=== PATIENT | male | born 1985 | race Caucasian/White ===

== ENCOUNTER 2017-09-24 13:25 | Observation (INO) | payer MEDICAID ==
[~2017-09-24] VITALS: Ht 177.8 cm; Wt 104.8 kg
[~2017-09-24 13:25] MED LIST: ACHD5005 PO; AGM875T PO; BENZ200C51 PO; CLC500CT; DOXY100C42 PO; FLUT9.9S NS; LORA1TAB59 PO; ONDA8TAB9 PO; TRM50T PO
--- OUTSIDE RECORDS SUMMARY | 2017-09-24 13:31 | XMS REPORT ---
Author Author LISA LEE Organization [facility] Address [address] [place] [address] Care Team Providers Care Care Coordination Manager Name Role Phone LISA LEE Unavailable PROBLEMS Type Condition ICD9-CM Code [id number] Code Onset Dates Condition Status SNOMED Code Problem Cerebral palsy, unspecified type G80.9 Active 535164900 ALLERGIES No Known Allergies ENCOUNTERS Encounter Location Date Diagnosis [facility] [address] [address] Nov, Cerebral palsy, unspecified type G80.9 [facility] [address] [address] Dec, Bug bite, initial encounter W57.XXXA and Abscess L02.91 [facility] [address] [address] Sep, Palpitation R00.2 ; Hyperlipidemia, unspecified hyperlipidemia type E78.5 and Chewing tobacco nicotine dependence without complication F17.220 [facility] [address] [place] [id number] [place] [phone] Sep, [facility] [id number] [place] [id number] Jun, [facility] [id number] [place] [phone] Jun, [facility] [address] [phone] Jun, [place] [address] [id number] [place] [phone] Jun, IMMUNIZATIONS No Known Immunizations SOCIAL HISTORY Never Assessed REASON FOR VISIT Annual physical (male)--ABoggsLPN PLAN OF CARE Activity Details Follow Up 1 Year Reason: VITAL SIGNS Height 71 in 2016-12-26 Weight 227.3 lbs 2016-12-26 Temperature 98.1 degrees Fahrenheit 2016-12-26 Heart Rate 88 bpm 2016-12-26 Respiratory Rate 18 2016-12-26 BMI 31.70 kg/m2 2016-12-26 Blood pressure systolic 130 mmHg 2016-12-26 Blood pressure diastolic 76 mmHg 2016-12-26 MEDICATIONS No Known Medications RESULTS No Results PROCEDURES No Known procedures INSTRUCTIONS MEDICATIONS ADMINISTERED No Known Medications MEDICAL (GENERAL) HISTORY Type Description Date Medical History cerebral palsy Surgical History appendectomy Surgical History hernia repair Hospitalization History Hospitalization for surgery only
--- OUTSIDE RECORDS SUMMARY | 2017-09-24 13:31 | XMS REPORT ---
Author Author ALDAIR MCDONALD Organization [facility] Address [address] [place] [address] Care Team Providers Care Sidehand Name Role Phone HARRY ALDAIR Unavailable PROBLEMS Type Condition ICD9-CM Code [id number] Code Onset Dates Condition Status SNOMED Code Problem Palpitation R00.2 Active 23352329 Problem Hyperlipidemia, unspecified hyperlipidemia type E78.5 Active 05623347 Assessment Bug bite, initial encounter W57.XXXA Dec, Active 108807141 Assessment Abscess L02.91 Dec, Active 148501082 Problem Chewing tobacco nicotine dependence without complication F17.220 Active 49232611 Problem Routine general medical examination at health care facility V70.0 Active 994179882 ALLERGIES Substance Reaction Event Type Date Status N.K.D.A. Unknown Non Drug Allergy Dec, Unknown SOCIAL HISTORY No smoking Hx information available PLAN OF CARE VITAL SIGNS Height 71 in 2016-01-22 Weight 218 lbs 2016-01-22 Heart Rate 80 bpm 2016-01-22 Respiratory Rate 18 2016-01-22 BMI 30.40 kg/m2 2016-01-22 Blood pressure systolic 130 mmHg 2016-01-22 Blood pressure diastolic 80 mmHg 2016-01-22 MEDICATIONS Medication Instructions Dosage Frequency Start Date End Date Duration Status Bactroban 2 % Externally Three times a day 1 application to affected area 8h Dec, Dec, 7 days Active Bactrim DS 800-160 MG Orally Twice a day 1 tablet 12h Dec, Jan, 10 day(s) Active RESULTS No Results PROCEDURES Procedure Date Ordered Related Diagnosis Body Site Office Visit, Est Pt., Level 3 Jan 22, 2016 IMMUNIZATIONS No Known Immunizations
--- NOTE | 2017-09-24 14:21 | ED EENT ---
History of Present Illness General Chief Complaint: Dental Problems/Pain Stated Complaint: L SIDE ABSCESS TOOTH Nursing Triage Note: c/o facial swelling and dental pain Source: patient Exam Limitations: no limitations History of Present Illness Date Seen by Provider: September 24, 2017 Time Seen by Provider: 14:20 Initial Comments To ER with reports of left maxillary toothache for a few days swelling since yesterday. Timing/Duration: abrupt Severity: moderate Location: facial, dental Associated Symptoms: denies symptoms Allergies and Home Medications Allergies Coded Allergies: No Known Drug Allergies (Unverified , 08/17/08) Home Medications Benzonatate 200 Mg Capsule, 200 MG PO TID Prescribed by: LISET DENNISON on 04/05/161854 Doxycycline Monohydrate 100 Mg Capsule, 100 MG PO BID Prescribed by: LISET DENNISON on 04/05/161854 Fluticasone Propionate 9.9 Ml Lynco.susp, 2 SPRAYS NS BID Prescribed by: LISET DENNISON on 04/05/161854 Loratadine/Pseudoephedrine 1 Each Tab.er.12h, 1 EACH PO BID Prescribed by: LISET DENNISON on 04/05/161854 Patient Home Medication List Home Medication List Reviewed: Yes Review of Systems Constitutional: see HPI Eyes: No Symptoms Reported Ears: No Symptoms Reported Nose: no symptoms reported Mouth: see HPI, pain Throat: no symptoms reported Respiratory: no symptoms reported Cardiovascular: no symptoms reported (What was) Musculoskeletal: no symptoms reported Skin: no symptoms reported Past Hxxfppj-Bwotfy-Sridoq Hx Patient Social History Alcohol Use: Denies Use Recreational Drug Use: No Recent Foreign Travel: No Contact w/Someone Who Travel: No Recent Infectious Disease Expo: No Recent Hopitalizations: No Physical Abuse: No Sexual Abuse: No Immunizations Up To Date Tetanus Booster (TDap): Unknown Past Medical History Surgeries: Yes (DIAPH.HERNIA REPAIR,FEEDING TUBE,ADHESIONS,APPY, lipoma excision) Abdominal, Appendectomy Respiratory: No (SPONTANEOUS PNEUMOTHORAX A BABY) Cardiac: No Neurological: Yes Cerebral Palsy Reproductive Disorders: No Sexually Transmitted Disease: No Gastrointestinal: Yes (DIAPHRAGMATIC HERNIA REPAIR INFANT) Musculoskeletal: No Endocrine: No Cancer: No Psychosocial: No Nursing Suicide Risk Score: 0 Integumentary: No Blood Disorders: No Family Medical History No Pertinent Family Hx Physical Exam Vital Signs Vital Signs - First Documented 09/24/17 14:02 Temp 98.1 Pulse 123 Resp 18 B/P (MAP) 133/64 (87) Pulse Ox 97 General Appearance: WD/WN, no apparent distress Eyes: bilateral eye normal inspection, bilateral eye PERRL, bilateral eye EOMI , bilateral eye other (The extraocular muscles are intact.) Ears: bilateral ear auricle normal, bilateral ear canal normal, bilateral ear TM normal Mouth/Throat: maxillary swelling, other (Left maxillary swelling) Neck: non-tender, full range of motion Respiratory: normal breath sounds, no respiratory distress, no accessory muscle use Gastrointestinal: normal bowel sounds, non tender Neurologic/Psychiatric: alert, normal mood/affect, oriented x 3 Skin: normal color, warm/dry Progress/Results/Core Measures Results/Orders Lab Results Laboratory Tests Test 09/24/17 14:15 Range/Units White Blood Count 12.2 H 4.3-11.0 10^3/uL Red Blood Count 5.28 4.35-5.85 10^6/uL Hemoglobin 15.5 13.3-17.7 G/DL Hematocrit 43 40-54 % Mean Corpuscular Volume 82 80-99 FL Mean Corpuscular Hemoglobin 29 25-34 PG Mean Corpuscular Hemoglobin Concent 36 32-36 G/DL Red Cell Distribution Width 14.1 10.0-14.5 % Platelet Count 315 130-400 10^3/uL Mean Platelet Volume 9.7 7.4-10.4 FL Neutrophils (%) (Auto) 77 H 42-75 % Lymphocytes (%) (Auto) 16 12-44 % Monocytes (%) (Auto) 6 0-12 % Eosinophils (%) (Auto) 1 0-10 % Basophils (%) (Auto) 0 0-10 % Neutrophils # (Auto) 9.5 H 1.8-7.8 X 10^3 Lymphocytes # (Auto) 2.0 1.0-4.0 X 10^3 Monocytes # (Auto) 0.7 0.0-1.0 X 10^3 Eosinophils # (Auto) 0.1 0.0-0.3 10^3/uL Basophils # (Auto) 0.0 0.0-0.1 10^3/uL Sodium Level 139 135-145 MMOL/L Potassium Level 3.4 L 3.6-5.0 MMOL/L Chloride Level 108 H 98-107 MMOL/L Carbon Dioxide Level 19 L 21-32 MMOL/L Anion Gap 12 5-14 MMOL/L Blood Urea Nitrogen 6 L 7-18 MG/DL Creatinine 1.02 0.60-1.30 MG/DL Estimat Glomerular Filtration Rate > 60 BUN/Creatinine Ratio 6 Glucose Level 130 H 70-105 MG/DL Calcium Level 9.4 8.5-10.1 MG/DL Total Bilirubin 0.7 0.1-1.0 MG/DL Aspartate Amino Transf (AST/SGOT) 14 5-34 U/L Alanine Aminotransferase (ALT/SGPT) 24 0-55 U/L Alkaline Phosphatase 93 40-136 U/L Total Protein 8.3 H 6.4-8.2 GM/DL Albumin 4.7 H 3.2-4.5 GM/DL My Orders Orders - SHEILA RASMUSSEN CHERRY GROWER Cbc With Automated Diff (09/24/17 14:10) Comprehensive Metabolic Panel (09/24/17 14:10) Ct Maxillofacial W (09/24/17 14:10) Ketorolac Injection (Toradol Injection) (09/24/17 15:15) Clindamycin 900 Mg/50 Ml Ivpb (Cleocin P (09/24/17 15:15) Lidocaine/Epi 2% 1:100,000 (Xylocaine/Ep (09/24/17 15:15) Iohexol Injection (Omnipaque 350 Mg/Ml 1 (09/24/17 15:15) Sodium Chloride Flush (Catheter Flush Sy (09/24/17 15:15) Pharmacy Communication (Pharmacy Communi (09/24/17 15:12) Medications Given in ED Current Medications Medications Dose Ordered Sig/Anastasia Route Start Time Stop Time Status Last Admin Dose Admin Clindamycin Phosphate/Dextrose 50 ml @ 100 mls/hr ONCE ONCE IV 09/24/17 15:15 09/24/17 15:44 DC 09/24/17 15:35 100 MLS/HR Iohexol 100 ml ONCE ONCE IV 09/24/17 15:15 09/24/17 15:16 DC 09/24/17 15:13 100 ML Ketorolac Tromethamine 15 mg ONCE ONCE IVP 09/24/17 15:15 09/24/17 15:16 DC 09/24/17 15:35 15 MG Sodium Chloride 10 ml NEEDED PRN IV 09/24/17 15:15 09/24/17 15:13 10 ML Vital Signs/I&O 09/24/17 14:02 Temp 98.1 Pulse 123 Resp 18 B/P (MAP) 133/64 (87) Pulse Ox 97 Blood Pressure Mean: 87 Diagnostic Imaging Diagonstic Imaging: CT Comments NAME: RISHI RICH [facility] REC#: [id number] PT STATUS: REG ER : 1985 PHYSICIAN: SHEILA RASMUSSEN CHERRY GROWER ADMIT DATE: 09/24/17/ER Draft Date of Exam:09/24/17 CT MAXILLOFACIAL W PROCEDURE: CT maxillofacial with contrast. TECHNIQUE: After intravenous administration of contrast, axial images were obtained through the face and reformatted into coronal and sagittal planes. INDICATION: Left facial pain. COMPARISON: None. FINDINGS: Moderate to advanced mucosal thickening in the left maxillary sinus. The paranasal sinuses are otherwise clear. No air-fluid levels. The ostiomeatal units and frontal recesses are patent. Midline nasal septum. No large flaco bullosa. There is a caries and periapical lucency about the first left maxillary premolar. The periapical lucency communicates with the left maxillary sinus. There is also suggestion of cortical breakthrough about the periapical lucency in the lateral cortex of the maxilla (series 5, image 36). There also appears to be moderate inflammatory changes about the left maxilla and the face with no discrete fluid collections. Left level Ib lymphadenopathy is likely reactive. No necrotic lymph nodes. Multiple additional caries in the maxillary and mandibular dentition. No other suspicious periapical lucencies. Normal alignment of the temporomandibular joints. The visualized mastoids and middle ears are clear. IMPRESSION: 1. There is periapical lucency about the left first maxillary premolar which communicates with the left maxillary sinus where there is moderate to advanced mucosal thickening. There is also suggestion of cortical breakthrough, laterally, about this lucency and inflammatory changes in the adjacent soft tissues of the face. No fluid collection suspicious for a soft tissue abscess are identified. 2. Multiple additional caries in the maxillary and mandibular dentition. No other findings suspicious for an acute infectious or inflammatory process. 3. Left level Ib cervical lymphadenopathy is likely reactive. No necrotic lymph nodes. Dictated on workstation # [id number] Dict: 09/24/17 1534 Trans: 09/24/17 1607 [facility] [id number] Interpreted by: PINA RAYGOZA MD Electronically signed by: Departure Communication (Admissions) Time/Spoke to Admitting Phy: 16:29 [id number] discussed the case with Dr. Palacios. The patient is still tachycardic at 1: 30, his blood pressure is fine at 132/79. White count 12.2. We will admit for a couple of doses of IV antibiotics given the marked left maxillary swelling. Impression Primary Impression: Dental abscess Disposition: ADMITTED INPATIENT Condition: Stable Admissions Decision to Admit Reason: Admit from ER (General) Decision to Admit/Date: September 24, 2017 Time/Decision to Admit Time: 16:17 Departure-Patient Inst. Referrals: [facility] [place]) Primary Care Physician SHEILA RASMUSSEN APRN September 24, 2017 14:21
[2017-09-24 14:35] LABS: BASOPHILS % (AUTO) 0 % (0-10); EOSINOPHILS # (AUTO) 0.1 10^3/uL (0.0-0.3); EOSINOPHILS % (AUTO) 1 % (0-10); HEMATOCRIT 43 % (40-54); HEMOGLOBIN 15.5 G/DL (13.3-17.7); LYMPHOCYTES % (AUTO) 16 % (12-44); MEAN CORPUSCULAR HEMOGLOBIN 29 PG (25-34); MEAN CORPUSCULAR HGB CONC 36 G/DL (32-36); MEAN CORPUSCULAR VOLUME 82 FL (80-99); MEAN PLATELET VOLUME 9.7 FL (7.4-10.4); MONOCYTES # (AUTO) 0.7 X 10^3 (0.0-1.0); MONOCYTES % (AUTO) 6 % (0-12); NEUTROPHILS # (AUTO) 9.5 X 10^3 (1.8-7.8); NEUTROPHILS % (AUTO) 77 % (42-75); PLATELET COUNT 315 10^3/uL (130-400); RED BLOOD COUNT 5.28 10^6/uL (4.35-5.85); RED CELL DISTRIBUTION WIDTH 14.1 % (10.0-14.5); WHITE BLOOD COUNT 12.2 10^3/uL (4.3-11.0)
[2017-09-24 14:51] LABS: ALANINE AMINOTRANSFERASE 24 U/L (0-55); ALBUMIN 4.7 GM/DL (3.2-4.5); ALKALINE PHOSPHATASE 93 U/L (40-136); BILIRUBIN,TOTAL 0.7 MG/DL (0.1-1.0); BUN/CREATININE RATIO 6; CALCIUM 9.4 MG/DL (8.5-10.1); CARBON DIOXIDE 19 MMOL/L (21-32); CHLORIDE 108 MMOL/L (98-107); CREATININE SERUM 1.02 MG/DL (0.60-1.30); GFR ESTIMATED > 60; GLUCOSE 130 MG/DL (70-105); POTASSIUM 3.4 MMOL/L (3.6-5.0); SODIUM 139 MMOL/L (135-145); TOTAL PROTEIN 8.3 GM/DL (6.4-8.2)
[2017-09-24] MEDS ORDERED: LIDOCAINE/EPI 2% 1:100,00 (XYLOCAINE) 20 ML VIAL INJ ONE (15:15)
[2017-09-24] MEDS ORDERED: IOHEXOL 350 MG/ML 100 ML (OMNIPAQUE 350) VIAL IV ONE (15:15)
[2017-09-24] MEDS ORDERED: CATHETER FLUSH 10 ML SYR IV PRN (15:15)
[2017-09-24] MEDS ORDERED: CLINDAMYCIN 900 MG/50 ML IVPB 50 ML IV ONE (15:15)
[2017-09-24] MEDS ORDERED: KETOROLAC 30 MG/ML VIAL IVP ONE (15:15)
--- NOTE | 2017-09-24 16:07 | Diagnostic Imaging Report ---
PROCEDURE: CT maxillofacial with contrast. TECHNIQUE: After intravenous administration of contrast, axial images were obtained through the face and reformatted into coronal and sagittal planes. INDICATION: Left facial pain. COMPARISON: None. FINDINGS: Moderate to advanced mucosal thickening in the left maxillary sinus. The paranasal sinuses are otherwise clear. No air-fluid levels. The ostiomeatal units and frontal recesses are patent. Midline nasal septum. No large flaco bullosa. There is a caries and periapical lucency about the first left maxillary premolar. The periapical lucency communicates with the left maxillary sinus. There is also suggestion of cortical breakthrough about the periapical lucency in the lateral cortex of the maxilla (series 5, image 36). There also appears to be moderate inflammatory changes about the left maxilla and the face with no discrete fluid collections. Left level Ib lymphadenopathy is likely reactive. No necrotic lymph nodes. Multiple additional caries in the maxillary and mandibular dentition. No other suspicious periapical lucencies. Normal alignment of the temporomandibular joints. The visualized mastoids and middle ears are clear. IMPRESSION: 1. There is periapical lucency about the left first maxillary premolar which communicates with the left maxillary sinus where there is moderate to advanced mucosal thickening. There is also suggestion of cortical breakthrough, laterally, about this lucency and inflammatory changes in the adjacent soft tissues of the face. No fluid collection suspicious for a soft tissue abscess are identified. 2. Multiple additional caries in the maxillary and mandibular dentition. No other findings suspicious for an acute infectious or inflammatory process. 3. Left level Ib cervical lymphadenopathy is likely reactive. No necrotic lymph nodes. Dictated by: Dictated on workstation # [id number]
[2017-09-24 17:15] VITALS: BP 137/77
[2017-09-24] MEDS ORDERED: NS IV 1000 ML 1,000 ML ONE (18:06)
[2017-09-24] MEDS ORDERED: HYDROcodone/APAP 5 MG/325 MG (LORTAB) TAB PO PRN (19:00)
[2017-09-24 19:05] VITALS: BP 127/86
[2017-09-24] MEDS: NS IV 1000 ML 1,000 ML IV SCH (20:46)
[2017-09-24 23:20] VITALS: BP 115/76
[2017-09-24] MEDS: CLINDAMYCIN 900 MG/50 ML IVPB 50 ML IV SCH (23:32)
[2017-09-25] MEDS: NS IV 1000 ML 1,000 ML IV SCH ×2 (03:02→11:40)
[2017-09-25 03:55] VITALS: BP 108/69
[2017-09-25 05:10] LABS: BASOPHILS % (AUTO) 0 % (0-10); EOSINOPHILS # (AUTO) 0.1 10^3/uL (0.0-0.3); EOSINOPHILS % (AUTO) 1 % (0-10); HEMATOCRIT 38 % (40-54); HEMOGLOBIN 13.1 G/DL (13.3-17.7); LYMPHOCYTES # (AUTO) 2.9 X 10^3 (1.0-4.0); LYMPHOCYTES % (AUTO) 33 % (12-44); MEAN CORPUSCULAR HGB CONC 34 G/DL (32-36); MEAN CORPUSCULAR VOLUME 84 FL (80-99); MEAN PLATELET VOLUME 9.4 FL (7.4-10.4); MONOCYTES # (AUTO) 0.9 X 10^3 (0.0-1.0); MONOCYTES % (AUTO) 11 % (0-12); NEUTROPHILS # (AUTO) 4.7 X 10^3 (1.8-7.8); NEUTROPHILS % (AUTO) 54 % (42-75); PLATELET COUNT 257 10^3/uL (130-400); RED CELL DISTRIBUTION WIDTH 14.2 % (10.0-14.5); WHITE BLOOD COUNT 8.6 10^3/uL (4.3-11.0)
[2017-09-25 05:14] LABS: MEAN CORPUSCULAR HEMOGLOBIN 28 PG (25-34)
[2017-09-25] MEDS: CLINDAMYCIN 900 MG/50 ML IVPB 50 ML IV SCH (06:33)
[2017-09-25 08:00] VITALS: BP 107/66
[2017-09-25] MEDS ORDERED: ACETAMINOPHEN 325 MG TABLET/CAPLET (TYLENOL) ONE (09:27)
[2017-09-25] MEDS ORDERED: ACETAMINOPHEN 325 MG TABLET/CAPLET (TYLENOL) PO PRN (09:30)
--- NOTE | 2017-09-25 11:59 | History & Physical-Hospitalist ---
History of Present Illness HPI/Chief Complaint CC: Left dental abscess HPI: This is a 31-year-old white male clinic patient of Dr. 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 He was found to have an abscess and considering the facial erythema and edema he was found to meet criteria for inpatient IV antibiotics. He is originally placed on clindamycin and due to the severity I have discontinued that and started on Zosyn. At this current time patient denies any current pain and I will Hep-Lock IV fluid so that he can ambulate today and arrange for dental clinic extraction tomorrow. Source: patient Date Seen 09/25/17 Time Seen by Provider: 11:00 Attending Physician Dana Palacios MD PCP Center/k,[facility] Referring Physician Date of Admission September 24, 2017 at 16:14 Home Medications & Allergies Home Medications Reviewed patient Home Medication Reconciliation performed by pharmacy medication reconciliations registered diet technician and/or nursing. Patients Allergies have been reviewed. Allergies Allergies Coded Allergies No Known Drug Allergies (Unverified08/17/08) Past Enqpxgl-Waidnc-Uuaoyu Hx Past Med/Social Hx: Reviewed Nursing Past Med/Soc Hx, Reviewed and Corrections made Patient Social History Marrital Status: single Employed/Student: unemployed, student, full-time Alcohol Use: Denies Use Recreational Drug Use: No Smoking Status: Never a Smoker Type Used: Smokeless Tobacco Physical Abuse Screen: No Sexual Abuse: No Recent Foreign Travel: No Contact w/other who traveled: No Recent Hopitalizations: No Recent Infectious Disease Expo: No Immunizations Up To Date Tetanus Booster (TDap): Unknown Seasonal Allergies Seasonal Allergies: No Past Medical History Surgeries: Abdominal, Appendectomy Currently Using CPAP: No Currently Using BIPAP: No Neurological: Cerebral Palsy Reproductive: No Sexually Transmitted Disease: No History of Blood Disorders: No Family History Patient reports no known family medical history. Hypertension Review of Systems Constitutional: see HPI, fever EENTM: mouth pain, mouth swelling, throat pain Respiratory: no symptoms reported Cardiovascular: no symptoms reported Gastrointestinal: no symptoms reported Musculoskeletal: no symptoms reported Skin: no symptoms reported Psychiatric/Neurological: No Symptoms Reported All Other Systems Reviewed Negative Unless Noted: Yes Physical Exam Physical Exam Vital Signs Vital Signs - First Documented 09/24/17 09/24/17 14:02 17:15 Temp 98.1 Pulse 123 Resp 18 B/P (MAP) 133/64 (87) Pulse Ox 97 O2 Delivery Room Air Capillary Refill : Less Than 3 Seconds General Appearance: No Apparent Distress, WD/WN Eyes: Bilateral Eye Normal Inspection, Bilateral Eye PERRL HEENT: PERRL/EOMI, Normal ENT Inspection, Pharynx Normal, Other (left facial edema and erythema noted) Neck: Full Range of Motion, Normal Inspection, Non Tender, Supple, Carotid Bruit Respiratory: Chest Non Tender, Lungs Clear, Normal Breath Sounds, No Accessory Muscle Use, No Respiratory Distress Cardiovascular: Regular Rate, Rhythm, No Edema, No Gallop, No JVD, No Murmur, Normal Peripheral Pulses Gastrointestinal: Normal Bowel Sounds, No Organomegaly, No Pulsatile Mass, Non Tender, Soft Back: Normal Inspection, No CVA Tenderness, No Vertebral Tenderness Extremity: Normal Capillary Refill, Normal Inspection, Normal Range of Motion, Non Tender, No Calf Tenderness, No Pedal Edema Neurologic/Psychiatric: Alert, Oriented x3, No Motor/Sensory Deficits, Normal Mood/Affect Skin: Normal Color, Warm/Dry Lymphatic: No Adenopathy Results Results/Procedures Labs Laboratory Tests 09/24/17 14:15 09/25/17 04:54 Patient resulted labs reviewed. Assessment/Plan Admission Diagnosis Left upper molar dental abscess with facial erythema and edema History of cerebral palsy Plan: DC clindamycin and start Zosyn Dental clinic follow-up tomorrow Admission Status: Observation Clinical Quality Measures DVT/VTE Risk/Contraindication: Risk Factor Score Per Nursin RFS Level Per Nursing on Admit: 2=Moderate PADMINI JACKSON DO September 25, 2017 11:59
[2017-09-25 12:00] VITALS: BP 118/58
[2017-09-25] MEDS ORDERED: PIPERACILLIN SODIUM/TAZOBACTAM 4.5 GM in D5W 100 ML IVPB 100 ML IV SCH (12:00)
[2017-09-25] MEDS ORDERED: PIPERACILLIN/TAZO 4.5 GM/D5W 100 ML IVPB IV NR ×2 (13:00)
[2017-09-25 16:28] VITALS: BP 128/72
[2017-09-25] MEDS: PIPERACILLIN SODIUM/TAZOBACTAM 4.5 GM in D5W 100 ML IVPB 100 ML IV SCH (18:14)
[2017-09-25 19:31] VITALS: BP 136/84
[2017-09-26] VITALS: BP 126/80
[2017-09-26] MEDS: PIPERACILLIN SODIUM/TAZOBACTAM 4.5 GM in D5W 100 ML IVPB 100 ML IV SCH ×2 (03:40→11:10)
[2017-09-26 03:44] VITALS: BP 130/79
[2017-09-26 06:26] LABS: BASOPHILS % (AUTO) 1 % (0-10); EOSINOPHILS # (AUTO) 0.1 10^3/uL (0.0-0.3); EOSINOPHILS % (AUTO) 2 % (0-10); HEMATOCRIT 39 % (40-54); HEMOGLOBIN 13.6 G/DL (13.3-17.7); LYMPHOCYTES # (AUTO) 2.5 X 10^3 (1.0-4.0); LYMPHOCYTES % (AUTO) 38 % (12-44); MEAN CORPUSCULAR HEMOGLOBIN 29 PG (25-34); MEAN CORPUSCULAR HGB CONC 35 G/DL (32-36); MEAN CORPUSCULAR VOLUME 84 FL (80-99); MEAN PLATELET VOLUME 9.6 FL (7.4-10.4); MONOCYTES # (AUTO) 0.7 X 10^3 (0.0-1.0); MONOCYTES % (AUTO) 11 % (0-12); NEUTROPHILS # (AUTO) 3.2 X 10^3 (1.8-7.8); NEUTROPHILS % (AUTO) 49 % (42-75); PLATELET COUNT 274 10^3/uL (130-400); RED BLOOD COUNT 4.69 10^6/uL (4.35-5.85); RED CELL DISTRIBUTION WIDTH 14.4 % (10.0-14.5); WHITE BLOOD COUNT 6.4 10^3/uL (4.3-11.0)
[2017-09-26 07:05] LABS: ALANINE AMINOTRANSFERASE 17 U/L (0-55); ALBUMIN 3.9 GM/DL (3.2-4.5); ALKALINE PHOSPHATASE 74 U/L (40-136); BILIRUBIN,TOTAL 0.3 MG/DL (0.1-1.0); BUN/CREATININE RATIO 9; CARBON DIOXIDE 22 MMOL/L (21-32); CHLORIDE 109 MMOL/L (98-107); CREATININE SERUM 0.93 MG/DL (0.60-1.30); GFR ESTIMATED > 60; GLUCOSE 105 MG/DL (70-105); POTASSIUM 3.9 MMOL/L (3.6-5.0); SODIUM 140 MMOL/L (135-145); TOTAL PROTEIN 6.9 GM/DL (6.4-8.2)
[2017-09-26 08:00] VITALS: BP 123/85
[2017-09-26] MEDS ORDERED: AMOX-358 PO (10:08)
[2017-09-26] MEDS ORDERED: ACHD5005 PO (10:08)
--- NOTE | 2017-09-26 10:10 | Discharge Summary-Hospitalist ---
Diagnosis/Chief Complaint Date of Admission September 24, 2017 at 16:14 Date of Discharge Discharge Date: September 26, 2017 Admission Diagnosis Left upper molar dental abscess with facial erythema and edema History of cerebral palsy Plan: DC clindamycin and start Zosyn Dental clinic follow-up tomorrow Discharge Diagnosis (1) Dental abscess Status: Acute (2) Cerebral palsy Status: Chronic Discharge Summary Discharge Physical Exam Allergies: Coded Allergies: No Known Drug Allergies (Unverified , 08/17/08) Vitals & I&Os Vital Signs Date Time Temp Pulse Resp B/P (MAP) Pulse Ox O2 Delivery O2 Flow Rate FiO2 09/26/17 08:00 97.0 90 18 123/85 (98) 97 Room Air General Appearance: Alert, Oriented X3, Cooperative HEENT: Atraumatic, PERRLA, Other (minimal edema left side of face no erythema) Respiratory: Clear to Auscultation Hospital Course Hospital course: Patient was admitted for severe left upper molar dental abscess placed on clindamycin which was changed to Zosyn for additional broad- spectrum due to the severity of the edema and erythema and CT scan imaging with its communication with soft tissue of the sinuses on the left side. He did well he responded to IV antibiotics and IV fluids and he was set up for dental extraction this afternoon at 1 p.m. a [facility]. Labs (last 24 hrs) Laboratory Tests 09/26/17 05:30: White Blood Count 6.4, Red Blood Count 4.69, Hemoglobin 13.6, Hematocrit 39L, Mean Corpuscular Volume 84, Mean Corpuscular Hemoglobin 29, Mean Corpuscular Hemoglobin Concent 35, Red Cell Distribution Width 14.4, Platelet Count 274, Mean Platelet Volume 9.6, Neutrophils (%) (Auto) 49, Lymphocytes (%) (Auto) 38, Monocytes (%) (Auto) 11, Eosinophils (%) (Auto) 2, Basophils (%) (Auto) 1, Neutrophils # (Auto) 3.2, Lymphocytes # (Auto) 2.5, Monocytes # (Auto) 0.7, Eosinophils # (Auto) 0.1, Basophils # (Auto) 0.0, Sodium Level 140, Potassium Level 3.9, Chloride Level 109H, Carbon Dioxide Level 22, Anion Gap 9, Blood Urea Nitrogen 8, Creatinine 0.93, Estimat Glomerular Filtration Rate > 60, BUN/ Creatinine Ratio 9, Glucose Level 105, Calcium Level 9.0, Total Bilirubin 0.3, Aspartate Amino Transf (AST/SGOT) 12, Alanine Aminotransferase (ALT/SGPT) 17, Alkaline Phosphatase 74, Total Protein 6.9, Albumin 3.9 Microbiology 09/24/17 Blood Culture - Preliminary, Resulted No growth Patient resulted labs reviewed. Pending Labs Laboratory Tests 09/26/17 05:30: White Blood Count 6.4, Red Blood Count 4.69, Hemoglobin 13.6, Hematocrit 39, Mean Corpuscular Volume 84, Mean Corpuscular Hemoglobin 29, Mean Corpuscular Hemoglobin Concent 35, Red Cell Distribution Width 14.4, Platelet Count 274, Mean Platelet Volume 9.6, Neutrophils (%) (Auto) 49, Lymphocytes (%) (Auto) 38, Monocytes (%) (Auto) 11, Eosinophils (%) (Auto) 2, Basophils (%) (Auto) 1, Neutrophils # (Auto) 3.2, Lymphocytes # (Auto) 2.5, Monocytes # (Auto) 0.7, Eosinophils # (Auto) 0.1, Basophils # (Auto) 0.0, Sodium Level 140, Potassium Level 3.9, Chloride Level 109, Carbon Dioxide Level 22, Anion Gap 9, Blood Urea Nitrogen 8, Creatinine 0.93, Estimat Glomerular Filtration Rate > 60, BUN/ Creatinine Ratio 9, Glucose Level 105, Calcium Level 9.0, Total Bilirubin 0.3, Aspartate Amino Transf (AST/SGOT) 12, Alanine Aminotransferase (ALT/SGPT) 17, Alkaline Phosphatase 74, Total Protein 6.9, Albumin 3.9 Discussion & Recommendations Discharge Planning: <30 minutes discharge planning Discharge Home Medications: Active Scripts Active Augmentin 875-125 Tablet (Amoxicillin/Potassium Clav) 1 Each Tablet 1 Each PO BID Hydrocodone/Acetaminophen 5/325mg Tablet (Acetaminophen/Hydrocodone Bitart) 1 Tab Tab 1 Tab PO Q4H PRN Instructions to patient/family Please see electronic discharge instructions given to patient. Clinical Quality Measures DVT/VTE Risk/Contraindication: Risk Factor Score Per Nursin RFS Level Per Nursing on Admit: 2=Moderate PADMINI JACKSON DO September 26, 2017 10:10
[2017-09-26 12:00] VITALS: BP 128/78
[2017-09-26 12:45] VITALS: BP 128/78
== END 2017-09-26 10:09 | disposition home or self-care (01) ==
LOC: EDUNIT# 13:25 → ER 13:27 → 4TH 16:14 → UNDOADMOB 16:14 → 4TH 17:15 → UNDODISOB 09-26 12:45
PROVIDERS: ADMIT Family Medicine; ATTEND Family Medicine
DX: K04.7 Periapical abscess without sinus (principal); G80.9 Cerebral palsy, unspecified
CPT/HCPCS: 36415; 70487; 80053; 83605; 85025; 87040; 96365; 96375; G0378

== ENCOUNTER 2018-03-21 13:10 | Emergency (ER) | payer MEDICAID ==
[~2018-03-21] VITALS: Ht 177.8 cm; Wt 108.9 kg
[~2018-03-21 13:10] MED LIST changes: +AMOX-358 PO
[2018-03-21] MEDS ORDERED: AMOX-358 PO (14:16)
--- NOTE | 2018-03-21 14:17 | ED EENT ---
History of Present Illness General Chief Complaint: Dental Problems/Pain Stated Complaint: TOOTH PAIN Nursing Triage Note: ARRIVED VIA AMB TO TRIAGE ROOM. COMPLAINS OF RIGHT SIDED TOOTH PAIN BUT CAN'T LOCALIZE THE PAIN. STATES IT STARTED YESTERDAY. Source: patient Exam Limitations: no limitations History of Present Illness Date Seen by Provider: Mar 21, 2018 Time Seen by Provider: 14:14 Initial Comments Patient is a 32-year-old male who presents to the emergency room with complaints of right sided upper molar tooth pain. He reports the pain started yesterday and has tried Orajel without relief. He tried to make an appointment with [facility] and they're booked until mid-March. He reports that he has had several dental issues in the past and has several caries. Timing/Duration: yesterday Location: mouth, dental Prearrival Treatment: over the counter meds Associated Symptoms: No facial pain/swelling; tooth pain Allergies and Home Medications Allergies Coded Allergies: No Known Drug Allergies (Unverified , 08/17/08) Home Medications Amoxicillin/Potassium Clav 1 Each Tablet, 1 EACH PO BID Prescribed by: ANISHA KNOX on 03/21/18 1416 Patient Home Medication List Home Medication List Reviewed: Yes Review of Systems Review of Systems Constitutional: no symptoms reported, see HPI Mouth: see HPI, pain All Other Systems Reviewed Negative Unless Noted: Yes Past Lebruzt-Gkxfqq-Jegkdk Hx Past Med/Social Hx: Reviewed Nursing Past Med/Soc Hx Patient Social History Alcohol Use: Rarely Uses Recreational Drug Use: No Smoking Status: Never a Smoker Type Used: Smokeless Tobacco Recent Foreign Travel: No Contact w/Someone Who Travel: No Recent Infectious Disease Expo: No Recent Hopitalizations: No Immunizations Up To Date Tetanus Booster (TDap): Unknown Seasonal Allergies Seasonal Allergies: No Past Medical History Surgeries: Yes (DIAPH.HERNIA REPAIR,FEEDING TUBE,ADHESIONS,APPY, lipoma excision) Abdominal, Appendectomy Respiratory: Yes (SPONTANEOUS PNEUMOTHORAX A BABY) Currently Using CPAP: No Currently Using BIPAP: No Cardiac: No Neurological: Yes Cerebral Palsy Reproductive Disorders: No Sexually Transmitted Disease: No Genitourinary: No Gastrointestinal: Yes (DIAPHRAGMATIC HERNIA REPAIR ) Musculoskeletal: No Endocrine: No HEENT: No Cancer: No Psychosocial: No Integumentary: No Blood Disorders: No Family Medical History Reviewed Nursing Family Hx Patient reports no known family medical history. Hypertension Physical Exam Vital Signs Vital Signs - First Documented 03/21/18 14:04 Temp 96.9 Pulse 87 Resp 16 B/P (MAP) 137/91 (106) Pulse Ox 95 O2 Delivery Room Air Height, Weight, BMI Height: 5'10.00" Weight: 240lbs. 0.0oz. 108.359892ew; 33.1 BMI Method:Stated General Appearance: WD/WN, no apparent distress Mouth/Throat: other (poor dental hygiene, numerous dental caries, abscess tooth to the right upper molar) Cardiovascular: normal peripheral pulses, regular rate, rhythm, no edema, no gallop, no JVD, no murmur Respiratory: chest non-tender, lungs clear, normal breath sounds, no respiratory distress, no accessory muscle use Neurologic/Psychiatric: alert, normal mood/affect, oriented x 3 Skin: normal color, warm/dry Progress/Results/Core Measures Results/Orders My Orders Orders - ANISHA KNOX Hydrocodone/Apap 5/325 Tablet (Lortab 5 (03/21/18 14:30) Medications Given in ED Current Medications Medications Dose Ordered Sig/Anastasia Route Start Time Stop Time Status Last Admin Dose Admin Acetaminophen/ Hydrocodone Bitart 1 tab ONCE ONCE PO 03/21/18 14:30 03/21/18 14:30 DC 03/21/18 14:23 1 TAB Vital Signs/I&O 03/21/18 03/21/18 14:04 14:25 Temp 96.9 96.9 Pulse 87 87 Resp 16 16 B/P (MAP) 137/91 (106) 137/91 (106) Pulse Ox 95 95 O2 Delivery Room Air Blood Pressure Mean: 106 Departure Impression Primary Impression: Dental caries Additional Impression: Abscessed tooth Disposition: 01 HOME, SELF-CARE Condition: Stable/Unchanged Departure-Patient Inst. Decision time for Depature: 14:16 Referrals: [facility] (PCP/Family) Primary Care Physician Patient Instructions: Tooth Abscess (DC) Add. Discharge Instructions: Take medications as directed. Tylenol and ibuprofen as needed for pain relief. Follow-up with [facility] dental clinic call today for an appointment time. Return back to the emergency room for any worsening symptoms or concerns as needed. All discharge instructions reviewed with patient and/or family. Voiced understanding. Scripts Amoxicillin/Potassium Clav (Augmentin 875-125 Tablet) 1 Each Tablet 1 EACH PO BID for 10 Days, #20 TAB Prov: ANISHA KNOX 03/21/18 Images Mouth/Nose 1 - Caries, Swelling, Tenderness ANISHA KNOX Mar 21, 2018 14:17
[2018-03-21] MEDS: HYDROcodone/APAP 5 MG/325 MG (LORTAB) TAB PO ONE (14:23)
[2018-03-21 14:25] VITALS: BP 137/91
--- OUTSIDE RECORDS SUMMARY | 2018-03-21 15:04 | XMS REPORT ---
Author Author SABA LAZARO Organization [facility] Address [address] [place] [address] Care Team Providers Care Administration Dean Name Role Phone SABA LAZARO Unavailable PROBLEMS Type Condition ICD9-CM Code PIG87-SW Code Onset Dates Condition Status SNOMED Code Problem Depressive disorder, not elsewhere classified F32.9 Active 01573785 Problem Cerebral palsy, unspecified type G80.9 Active [id number] ALLERGIES No Information ENCOUNTERS Encounter Location Date Diagnosis [facility] [address] [address] Mar, [facility] [address] [address] Mar, [facility] [address] [address] Jan, Depressive disorder, not elsewhere classified F32.9 [facility] [address] [address] Jan, [facility] [address] [address] Dec, [facility] [address] [address] Nov, Cerebral palsy, unspecified type G80.9 [facility] [address] [place] [address] [id number] Sep, Dental caries K02.9 [facility] [address] [place] [address] [phone] Sep, Dental caries K02.9 [facility] [id number] [place] [address] [phone] August, Dental examination Z01.20 [facility] [id number] [place] [address] Nov, Cerebral palsy, unspecified type G80.9 [facility] [id number] [place] [address] Dec, Bug bite, initial encounter W57.XXXA and Abscess L02.91 [place] [address] [address] Sep, Palpitation R00.2 ; Hyperlipidemia, unspecified hyperlipidemia type E78.5 and Chewing tobacco nicotine dependence without complication F17.220 [place] [address] [address] Sep, [place] [address] [address] Jun, [facility] [address] [address] Jun, [facility] [id number] [place] [address] Jun, [place] [id number] [place] [address] Jun, IMMUNIZATIONS No Known Immunizations SOCIAL HISTORY Never Assessed REASON FOR VISIT Reminder PLAN OF CARE VITAL SIGNS MEDICATIONS Unknown Medications RESULTS No Results PROCEDURES No Known procedures INSTRUCTIONS MEDICATIONS ADMINISTERED No Known Medications MEDICAL (GENERAL) HISTORY Type Description Date Medical History cerebral palsy Surgical History appendectomy Surgical History hernia repair Hospitalization History Hospitalization for surgery only
--- OUTSIDE RECORDS SUMMARY | 2018-03-21 15:04 | XMS REPORT ---
Author Author LISA LEE [facility] Address [address] [place] [address] Care Team Providers Care Resource Teacher Name Role Phone LISA LEE Unavailable PROBLEMS Type Condition ICD9-CM Code CHT58-YO Code Onset Dates Condition Status SNOMED Code Problem Depressive disorder, not elsewhere classified F32.9 Active 34044524 Problem Cerebral palsy, unspecified type G80.9 Active 449422098 ALLERGIES No Information ENCOUNTERS Encounter Location Date Diagnosis [facility] [address] [address] Mar, [facility] [address] [address] Mar, [facility] [address] [address] Jan, Depressive disorder, not elsewhere classified F32.9 [facility] [address] [address] Jan, [facility] [id number] [place] [address] Dec, [facility] [address] [address] Nov, Cerebral palsy, unspecified type G80.9 [facility] [id number] [place] [address] [id number] Sep, Dental caries K02.9 [facility] [id number] [place] [address] [id number] Sep, Dental caries K02.9 [facility] [id number] [place] [address] [id number] August, Dental examination Z01.20 [facility] [id number] [place] [address] Nov, Cerebral palsy, unspecified type G80.9 [facility] [address] [address] Dec, Bug bite, initial encounter W57.XXXA and Abscess L02.91 [place] [address] [address] Sep, Palpitation R00.2 ; Hyperlipidemia, unspecified hyperlipidemia type E78.5 and Chewing tobacco nicotine dependence without complication F17.220 [place] [address] [address] Sep, [place] [address] [address] Jun, [facility] [address] [address] Jun, [facility] [address] [address] Jun, [place] [address] [address] Jun, IMMUNIZATIONS No Known Immunizations SOCIAL HISTORY Never Assessed REASON FOR VISIT referral PLAN OF CARE VITAL SIGNS MEDICATIONS Unknown Medications RESULTS No Results PROCEDURES No Known procedures INSTRUCTIONS MEDICATIONS ADMINISTERED No Known Medications MEDICAL (GENERAL) HISTORY Type Description Date Medical History cerebral palsy Surgical History appendectomy Surgical History hernia repair Hospitalization History Hospitalization for surgery only
--- OUTSIDE RECORDS SUMMARY | 2018-03-21 15:04 | XMS REPORT ---
Author Author DIANNE LAZARO Organization [facility] Address [address] [place] [address] Care Team Providers Care Vice President Of Recruiting Name Role Phone DIANNE LAZARO Unavailable PROBLEMS Type Condition ICD9-CM Code DMT37-EO Code Onset Dates Condition Status SNOMED Code Problem Depressive disorder, not elsewhere classified F32.9 Active 49126051 Problem Cerebral palsy, unspecified type G80.9 Active 958504121 ALLERGIES No Information ENCOUNTERS Encounter Location Date Diagnosis [facility] [address] [address] Mar, [facility] [address] [address] Mar, [facility] [address] [address] Jan, Depressive disorder, not elsewhere classified F32.9 [facility] [address] [address] Jan, [facility] [address] [address] Dec, [facility] [address] [address] Nov, Cerebral palsy, unspecified type G80.9 [facility] [address] [place] [phone] Sep, Dental caries K02.9 [facility] [address] [place] [address] [phone] Sep, Dental caries K02.9 [facility] [id number] [place] [address] [phone] August, Dental examination Z01.20 [facility] [address] [place] [address] Nov, Cerebral palsy, unspecified type G80.9 [facility] [address] [place] [id number] [place] [address] Dec, Bug bite, initial encounter W57.XXXA and Abscess L02.91 [facility] [address] [address] Sep, Palpitation R00.2 ; Hyperlipidemia, unspecified hyperlipidemia type E78.5 and Chewing tobacco nicotine dependence without complication F17.220 [place] [address] [address] Sep, [facility] [address] [place] [address] [id number] [place] [address] Jun, [facility] [address] [place] [address] [id number] [place] [address] Jun, [facility] [address] [place] [address] [id number] [place] [address] Jun, [place] [address] [address] [id number] [place] [address] Jun, IMMUNIZATIONS No Known Immunizations SOCIAL HISTORY Never Assessed REASON FOR VISIT intake PLAN OF CARE Activity Details Follow Up Next Available Reason: Follow-up VITAL SIGNS MEDICATIONS Unknown Medications RESULTS No Results PROCEDURES Procedure Date Ordered Result Body Site Psych diagnostic evaluation, established patient Jan 30, 2018 INSTRUCTIONS MEDICATIONS ADMINISTERED No Known Medications MEDICAL (GENERAL) HISTORY Type Description Date Medical History cerebral palsy Surgical History appendectomy Surgical History hernia repair Hospitalization History Hospitalization for surgery only
--- OUTSIDE RECORDS SUMMARY | 2018-03-21 15:04 | XMS REPORT ---
Author Author DIANNE LAZARO Organization [facility] Address [address] [place] [address] Care Team Providers Care Sas Bi Developer Name Role Phone DIANNE LAZARO Unavailable PROBLEMS Type Condition ICD9-CM Code PCX90-YD Code Onset Dates Condition Status SNOMED Code Problem Depressive disorder, not elsewhere classified F32.9 Active 04904692 Problem Cerebral palsy, unspecified type G80.9 Active 840316771 ALLERGIES No Information ENCOUNTERS Encounter Location Date Diagnosis [facility] [address] [address] Mar, [facility] [address] [address] Mar, Depressive disorder, not elsewhere classified F32.9 [facility] [address] [address] Jan, Depressive disorder, not elsewhere classified F32.9 [facility] [address] [address] Jan, [facility] [address] [address] Dec, [facility] [address] [address] Nov, Cerebral palsy, unspecified type G80.9 [facility] [address] [id number] Sep, Dental caries K02.9 [facility] [id number] [place] [address] [phone] Sep, Dental caries K02.9 [facility] [address] [id number] August, Dental examination Z01.20 [facility] [address] [place] [address] Nov, Cerebral palsy, unspecified type G80.9 [facility] [id number] [place] [address] Dec, Bug bite, initial encounter W57.XXXA and Abscess L02.91 [facility] [address] [address] Sep, Palpitation R00.2 ; Hyperlipidemia, unspecified hyperlipidemia type E78.5 and Chewing tobacco nicotine dependence without complication F17.220 [facility] [address] [address] Sep, [facility] [address] [address] Jun, [facility] [id number] [place] [address] Jun, [facility] [id number] [place] [address] Jun, [place] [address] [place] [address] [id number] [place] [address] Jun, IMMUNIZATIONS No Known Immunizations SOCIAL HISTORY Never Assessed REASON FOR VISIT Follow-up Depressed Mood PLAN OF CARE Activity Details Follow Up 2 Weeks Reason: Follow-up VITAL SIGNS MEDICATIONS Unknown Medications RESULTS No Results PROCEDURES Procedure Date Ordered Result Body Site Psychotherapy, patient &/family, 30 minutes, established patient Mar 12, 2018 INSTRUCTIONS MEDICATIONS ADMINISTERED No Known Medications MEDICAL (GENERAL) HISTORY Type Description Date Medical History cerebral palsy Surgical History appendectomy Surgical History hernia repair Hospitalization History Hospitalization for surgery only
--- OUTSIDE RECORDS SUMMARY | 2018-03-21 15:05 | XMS REPORT ---
Author Author DARSHAN TAMEZ [facility] Address Unknown Care Team Providers Care Railroad Emergency Services Manager Name Role Phone DARSHAN TAMEZ Unavailable PROBLEMS Type Condition ICD9-CM Code USX27-GT Code Onset Dates Condition Status SNOMED Code Problem Cerebral palsy, unspecified type G80.9 Active 175789760 ALLERGIES No Known Allergies ENCOUNTERS Encounter Location Date Diagnosis [place] [address] [address] Jan, [facility] [address] [address] Nov, Cerebral palsy, unspecified type G80.9 [facility] [address] [id number] Sep, Dental caries K02.9 [facility] [address] [id number] Sep, Dental caries K02.9 [facility] [address] [id number] August, Dental examination Z01.20 [facility] [address] [address] Nov, Cerebral palsy, unspecified type G80.9 [facility] [id number] [place] [address] Dec, Bug bite, initial encounter W57.XXXA and Abscess L02.91 [place] [address] [address] Sep, Palpitation R00.2 ; Hyperlipidemia, unspecified hyperlipidemia type E78.5 and Chewing tobacco nicotine dependence without complication F17.220 [place] [address] [place] [address] Sep, [facility] [address] [facility] [id number] [address] Jun, [facility] [address] [facility] [id number] [address] Jun, [facility] [address] [facility] [id number] [address] Jun, [facility] [address] [facility] [id number] [address] Jun, IMMUNIZATIONS No Known Immunizations SOCIAL HISTORY Never Assessed REASON FOR VISIT 2 wk te PLAN OF CARE Activity Details Follow Up prn Reason:arielle/hygiene sjf VITAL SIGNS Height 71 in 2017-10-26 Blood pressure systolic 128 mmHg 2017-10-26 Blood pressure diastolic 90 mmHg 2017-10-26 MEDICATIONS Medication Instructions Dosage Frequency Start Date End Date Duration Status Clindamycin HCl 150 MG Orally every 6 hrs 2 capsules 6h 7 days Not- Taking RESULTS No Results PROCEDURES Procedure Date Ordered Result Body Site EXTRAC ERUPTED TOOTH/EXPOSED ROOT October 26, 2017 INSTRUCTIONS MEDICATIONS ADMINISTERED No Known Medications MEDICAL (GENERAL) HISTORY Type Description Date Medical History cerebral palsy Surgical History appendectomy Surgical History hernia repair Hospitalization History Hospitalization for surgery only
--- OUTSIDE RECORDS SUMMARY | 2018-03-21 15:05 | XMS REPORT ---
Author Author DARSHAN TAMEZ [facility] Address Unknown Care Team Providers Care Body Shop Supervisor Name Role Phone DARSHAN TAMEZ Unavailable PROBLEMS Type Condition ICD9-CM Code EGF98-GN Code Onset Dates Condition Status SNOMED Code Problem Cerebral palsy, unspecified type G80.9 Active 872696517 ALLERGIES No Known Allergies ENCOUNTERS Encounter Location Date Diagnosis [facility] [address] [address] Nov, Cerebral palsy, unspecified type G80.9 [facility] [address] [id number] Sep, Dental caries K02.9 [facility] [address] [id number] Sep, Dental caries K02.9 [facility] [address] [place] [id number] August, Dental examination Z01.20 [facility] [address] [address] Nov, Cerebral palsy, unspecified type G80.9 [facility] [address] [address] Dec, Bug bite, initial encounter W57.XXXA and Abscess L02.91 [facility] [address] [address] Sep, Palpitation R00.2 ; Hyperlipidemia, unspecified hyperlipidemia type E78.5 and Chewing tobacco nicotine dependence without complication F17.220 [facility] [address] [address] Sep, [facility] [address] [place] [address] Jun, [facility] [address] [facility] [id number] [place] [address] Jun, [facility] [address] [facility] [id number] [address] Jun, [facility] [address] [facility] [id number] [place] [address] Jun, IMMUNIZATIONS No Known Immunizations SOCIAL HISTORY Never Assessed REASON FOR VISIT te PLAN OF CARE Activity Details Follow Up 2 Weeks Reason:Ext # 12 VITAL SIGNS Height 71 in 2017-10-04 Blood pressure systolic 123 mmHg 2017-10-04 Blood pressure diastolic 80 mmHg 2017-10-04 MEDICATIONS Medication Instructions Dosage Frequency Start Date End Date Duration Status Clindamycin HCl 150 MG Orally every 6 hrs 2 capsules 6h 7 days Active RESULTS No Results PROCEDURES Procedure Date Ordered Result Body Site Dental no charge October 04, 2017 INSTRUCTIONS MEDICATIONS ADMINISTERED No Known Medications MEDICAL (GENERAL) HISTORY Type Description Date Medical History cerebral palsy Surgical History appendectomy Surgical History hernia repair Hospitalization History Hospitalization for surgery only
--- OUTSIDE RECORDS SUMMARY | 2018-03-21 15:05 | XMS REPORT ---
Author Author DARSHAN TAMEZ [facility] Address Unknown Care Team Providers Care Nc Machinist Name Role Phone DARSHAN TAMEZ Unavailable PROBLEMS Type Condition ICD9-CM Code LJD71-MP Code Onset Dates Condition Status SNOMED Code Problem Cerebral palsy, unspecified type G80.9 Active [id number] ALLERGIES No Known Allergies ENCOUNTERS Encounter Location Date Diagnosis [facility] [address] [address] Nov, Cerebral palsy, unspecified type G80.9 [facility] [address] [id number] Sep, Dental caries K02.9 [facility] [address] [id number] Sep, Dental caries K02.9 [facility] [address] [place] [id number] August, Dental examination Z01.20 [facility] [address] [address] Nov, Cerebral palsy, unspecified type G80.9 [facility] [address] [address] Dec, Bug bite, initial encounter W57.XXXA and Abscess L02.91 [facility] [address] [address] Sep, Palpitation R00.2 ; Hyperlipidemia, unspecified hyperlipidemia type E78.5 and Chewing tobacco nicotine dependence without complication F17.220 [facility] [address] [address] Sep, [facility] [address] [place] [address] Jun, [facility] [address] [facility] [id number] [place] [address] Jun, [facility] [address] [facility] [id number] [address] Jun, [facility] [address] [facility] [id number] [place] [address] Jun, IMMUNIZATIONS No Known Immunizations SOCIAL HISTORY Never Assessed REASON FOR VISIT fuentes PLAN OF CARE Activity Details Follow Up 1 Week Reason:#12-te VITAL SIGNS Height 71 in 2017-09-26 Blood pressure systolic 135 mmHg 2017-09-26 Blood pressure diastolic 99 mmHg 2017-09-26 MEDICATIONS No Known Medications RESULTS No Results PROCEDURES Procedure Date Ordered Result Body Site LTD ORAL EVALUATION - PROBLEM FOCUS September 26, 2017 INTRAORL-PERIAPICAL 1 FILM 50007 September 26, 2017 BITEWING - SINGLE FILM September 26, 2017 INSTRUCTIONS MEDICATIONS ADMINISTERED No Known Medications MEDICAL (GENERAL) HISTORY Type Description Date Medical History cerebral palsy Surgical History appendectomy Surgical History hernia repair Hospitalization History Hospitalization for surgery only
--- OUTSIDE RECORDS SUMMARY | 2018-03-21 15:05 | XMS REPORT ---
Author Author LISA LEE Organization [facility] Address [address] [place] [address] Care Team Providers Care Commercial Designer Name Role Phone LISA LEE Unavailable PROBLEMS Type Condition ICD9-CM Code IPF46-KG Code Onset Dates Condition Status SNOMED Code Problem Cerebral palsy, unspecified type G80.9 Active [id number] ALLERGIES No Known Allergies ENCOUNTERS Encounter Location Date Diagnosis [place] [id number] Jan, [place] [id number] [address] Dec, [facility] [address] [place] [address] Nov, Cerebral palsy, unspecified type G80.9 [facility] [address] [id number] Sep, Dental caries K02.9 [facility] [address] [id number] Sep, Dental caries K02.9 [facility] [address] [id number] August, Dental examination Z01.20 [facility] [address] [address] Nov, Cerebral palsy, unspecified type G80.9 [facility] [address] [address] Dec, Bug bite, initial encounter W57.XXXA and Abscess L02.91 [place] [address] [address] Sep, Palpitation R00.2 ; Hyperlipidemia, unspecified hyperlipidemia type E78.5 and Chewing tobacco nicotine dependence without complication F17.220 [facility] [address] [address] Sep, [facility] [address] [address] Jun, [facility] [address], [place] [address] Jun, [facility] [address], [place] [address] Jun, [facility] [address], [place] [address] Jun, IMMUNIZATIONS No Known Immunizations SOCIAL HISTORY Never Assessed REASON FOR VISIT cerebral palsy follow up and needs TR159 form filled out from [employer]. Katey RN PLAN OF CARE Activity Details Follow Up prn Reason: VITAL SIGNS Height 71 in 2017-12-11 Weight 239.0 lbs 2017-12-11 Temperature 97.4 degrees Fahrenheit 2017-12-11 Heart Rate 96 bpm 2017-12-11 Respiratory Rate 20 2017-12-11 BMI 33.33 kg/m2 2017-12-11 Blood pressure systolic 106 mmHg 2017-12-11 Blood pressure diastolic 72 mmHg 2017-12-11 MEDICATIONS Unknown Medications RESULTS No Results PROCEDURES No Known procedures INSTRUCTIONS MEDICATIONS ADMINISTERED No Known Medications MEDICAL (GENERAL) HISTORY Type Description Date Medical History cerebral palsy Surgical History appendectomy Surgical History hernia repair Hospitalization History Hospitalization for surgery only
--- OUTSIDE RECORDS SUMMARY | 2018-03-21 15:05 | XMS REPORT | Continuity of Care Document ---
Author Author [facility] Organization [facility] Address Unknown Phone Unavailable Allergies Active Description Code Type Severity Reaction Onset Reported/Identified Relationship to Patient Clinical Status Yes No Known Drug Allergies [id number] Drug Allergy Mild N/A 08/17/2008 Medications There is no data. 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 08/26/2012 VINCE CHAO Ot 276.51 DEHYDRATION 08/26/2012 VINCE CHAO Ot 789.09 ABDOMINAL PAIN, OTHER SPECIFIED SITE 04/05/2016 Ot 214.1 LIPOMA SKIN NEC 04/05/2016 Ot V72.84 EXAM PRE- OPERATIVE NOS 04/05/2016 Ot V74.8 SCREEN- BACTERIAL DIS NEC 04/05/2016 JESI DO LISET K Ot G80.9 CEREBRAL PALSY, UNSPECIFIED 04/05/2016 JESI DO, LISET K Ot J06.9 ACUTE UPPER RESPIRATORY INFECTION, UNSPE 04/05/2016 JESI DO, LISET K Ot J40 BRONCHITIS, NOT SPECIFIED ACUTE OR CH 04/05/2016 JESI DO LISET K Ot R05 COUGH 04/06/2016 JESI DO LISET K Ot G80.9 CEREBRAL PALSY, UNSPECIFIED 04/06/2016 JESI DO LISET K Ot J06.9 ACUTE UPPER RESPIRATORY INFECTION, UNSPE 04/06/2016 JESI DO, LISET K Ot J40 BRONCHITIS, NOT SPECIFIED ACUTE OR CH 04/06/2016 JESI DO LISET K Ot R05 COUGH 09/26/2017 NIKKO STEVENS MD Ot G80.9 CEREBRAL PALSY, UNSPECIFIED 09/26/2017 NIKKO STEVENS MD Ot K04.7 PERIAPICAL ABSCESS WITHOUT SINUS 09/26/2017 NIKKO STEVENS MD Ot G80.9 CEREBRAL PALSY, UNSPECIFIED 09/26/2017 NIKKO STEVENS MD Ot K04.7 PERIAPICAL ABSCESS WITHOUT SINUS Procedures There is no data. Results Test Result Range Complete blood count (CBC) with automated white blood cell (WBC) differential - 09/24/17 14:15 Blood leukocytes automated count (number/volume) 12.2 10*3/uL 4.3-11.0 Blood erythrocytes automated count (number/volume) 5.28 10*6/uL 4.35-5.85 Venous blood hemoglobin measurement (mass/volume) 15.5 g/dL 13.3-17.7 Blood hematocrit (volume fraction) 43 % 40-54 Automated erythrocyte mean corpuscular volume 82 [foz_us] 80-99 Automated erythrocyte mean corpuscular hemoglobin (mass per erythrocyte) 29 pg 25-34 Automated erythrocyte mean corpuscular hemoglobin concentration measurement ( mass/volume) 36 g/dL 32-36 Automated erythrocyte distribution width ratio 14.1 % 10.0-14.5 Automated blood platelet count (count/volume) 315 10*3/uL 130-400 Automated blood platelet mean volume measurement 9.7 [foz_us] 7.4-10.4 Automated blood neutrophils/100 leukocytes 77 % 42-75 Automated blood lymphocytes/100 leukocytes 16 % 12-44 Blood monocytes/100 leukocytes 6 % 0-12 Automated blood eosinophils/100 leukocytes 1 % 0-10 Automated blood basophils/100 leukocytes 0 % 0-10 Blood neutrophils automated count (number/volume) 9.5 10*3 1.8-7.8 Blood lymphocytes automated count (number/volume) 2.0 10*3 1.0-4.0 Blood monocytes automated count (number/volume) 0.7 10*3 0.0-1.0 Automated eosinophil count 0.1 10*3/uL 0.0-0.3 Automated blood basophil count (count/volume) 0.0 10*3/uL 0.0-0.1 Comprehensive metabolic panel - 09/24/17 14:15 Serum or plasma sodium measurement (moles/volume) 139 mmol/L 135-145 Serum or plasma potassium measurement (moles/volume) 3.4 mmol/L 3.6-5.0 Serum or plasma chloride measurement (moles/volume) 108 mmol/L 98-107 Carbon dioxide 19 mmol/L 21-32 Serum or plasma anion gap determination (moles/volume) 12 mmol/L 5-14 Serum or plasma urea nitrogen measurement (mass/volume) 6 mg/dL 7-18 Serum or plasma creatinine measurement (mass/volume) 1.02 mg/dL 0.60-1.30 Serum or plasma urea nitrogen/creatinine mass ratio 6 NRG Serum or plasma creatinine measurement with calculation of estimated glomerular filtration rate > NRG Serum or plasma glucose measurement (mass/volume) 130 mg/dL 70-105 Serum or plasma calcium measurement (mass/volume) 9.4 mg/dL 8.5-10.1 Serum or plasma total bilirubin measurement (mass/volume) 0.7 mg/dL 0.1-1.0 Serum or plasma alkaline phosphatase measurement (enzymatic activity/volume) 93 U/L 40-136 Serum or plasma aspartate aminotransferase measurement (enzymatic activity/ volume) 14 U/L 5-34 Serum or plasma alanine aminotransferase measurement (enzymatic activity/volume ) 24 U/L 0-55 Serum or plasma protein measurement (mass/volume) 8.3 g/dL 6.4-8.2 Serum or plasma albumin measurement (mass/volume) 4.7 g/dL 3.2-4.5 Bacterial blood culture - 09/24/17 16:40 Bacterial blood culture NG NRG Bacterial blood culture - 09/24/17 16:50 Bacterial blood culture NG NRG Blood lactic acid measurement (moles/volume) - 09/24/17 17:12 Blood lactic acid measurement (moles/volume) 1.97 mmol/L 0.50-2.00 Complete blood count (CBC) with automated white blood cell (WBC) differential - 09/25/17 04:54 Blood leukocytes automated count (number/volume) 8.6 10*3/uL 4.3-11.0 Blood erythrocytes automated count (number/volume) 4.60 10*6/uL 4.35-5.85 Venous blood hemoglobin measurement (mass/volume) 13.1 g/dL 13.3-17.7 Blood hematocrit (volume fraction) 38 % 40-54 Automated erythrocyte mean corpuscular volume 84 [foz_us] 80-99 Automated erythrocyte mean corpuscular hemoglobin (mass per erythrocyte) 28 pg 25-34 Automated erythrocyte mean corpuscular hemoglobin concentration measurement ( mass/volume) 34 g/dL 32-36 Automated erythrocyte distribution width ratio 14.2 % 10.0-14.5 Automated blood platelet count (count/volume) 257 10*3/uL 130-400 Automated blood platelet mean volume measurement 9.4 [foz_us] 7.4-10.4 Automated blood neutrophils/100 leukocytes 54 % 42-75 Automated blood lymphocytes/100 leukocytes 33 % 12-44 Blood monocytes/100 leukocytes 11 % 0-12 Automated blood eosinophils/100 leukocytes 1 % 0-10 Automated blood basophils/100 leukocytes 0 % 0-10 Blood neutrophils automated count (number/volume) 4.7 10*3 1.8-7.8 Blood lymphocytes automated count (number/volume) 2.9 10*3 1.0-4.0 Blood monocytes automated count (number/volume) 0.9 10*3 0.0-1.0 Automated eosinophil count 0.1 10*3/uL 0.0-0.3 Automated blood basophil count (count/volume) 0.0 10*3/uL 0.0-0.1 Complete blood count (CBC) with automated white blood cell (WBC) differential - 09/26/17 05:30 Blood leukocytes automated count (number/volume) 6.4 10*3/uL 4.3-11.0 Blood erythrocytes automated count (number/volume) 4.69 10*6/uL 4.35-5.85 Venous blood hemoglobin measurement (mass/volume) 13.6 g/dL 13.3-17.7 Blood hematocrit (volume fraction) 39 % 40-54 Automated erythrocyte mean corpuscular volume 84 [foz_us] 80-99 Automated erythrocyte mean corpuscular hemoglobin (mass per erythrocyte) 29 pg 25-34 Automated erythrocyte mean corpuscular hemoglobin concentration measurement ( mass/volume) 35 g/dL 32-36 Automated erythrocyte distribution width ratio 14.4 % 10.0-14.5 Automated blood platelet count (count/volume) 274 10*3/uL 130-400 Automated blood platelet mean volume measurement 9.6 [foz_us] 7.4-10.4 Automated blood neutrophils/100 leukocytes 49 % 42-75 Automated blood lymphocytes/100 leukocytes 38 % 12-44 Blood monocytes/100 leukocytes 11 % 0-12 Automated blood eosinophils/100 leukocytes 2 % 0-10 Automated blood basophils/100 leukocytes 1 % 0-10 Blood neutrophils automated count (number/volume) 3.2 10*3 1.8-7.8 Blood lymphocytes automated count (number/volume) 2.5 10*3 1.0-4.0 Blood monocytes automated count (number/volume) 0.7 10*3 0.0-1.0 Automated eosinophil count 0.1 10*3/uL 0.0-0.3 Automated blood basophil count (count/volume) 0.0 10*3/uL 0.0-0.1 Comprehensive metabolic panel - 09/26/17 05:30 Serum or plasma sodium measurement (moles/volume) 140 mmol/L 135-145 Serum or plasma potassium measurement (moles/volume) 3.9 mmol/L 3.6-5.0 Serum or plasma chloride measurement (moles/volume) 109 mmol/L 98-107 Carbon dioxide 22 mmol/L 21-32 Serum or plasma anion gap determination (moles/volume) 9 mmol/L 5-14 Serum or plasma urea nitrogen measurement (mass/volume) 8 mg/dL 7-18 Serum or plasma creatinine measurement (mass/volume) 0.93 mg/dL 0.60-1.30 Serum or plasma urea nitrogen/creatinine mass ratio 9 NRG Serum or plasma creatinine measurement with calculation of estimated glomerular filtration rate > NRG Serum or plasma glucose measurement (mass/volume) 105 mg/dL 70-105 Serum or plasma calcium measurement (mass/volume) 9.0 mg/dL 8.5-10.1 Serum or plasma total bilirubin measurement (mass/volume) 0.3 mg/dL 0.1-1.0 Serum or plasma alkaline phosphatase measurement (enzymatic activity/volume) 74 U/L 40-136 Serum or plasma aspartate aminotransferase measurement (enzymatic activity/ volume) 12 U/L 5-34 Serum or plasma alanine aminotransferase measurement (enzymatic activity/volume ) 17 U/L 0-55 Serum or plasma protein measurement (mass/volume) 6.9 g/dL 6.4-8.2 Serum or plasma albumin measurement (mass/volume) 3.9 g/dL 3.2-4.5 Encounters ACCT No. Visit Date/Time Discharge Status Pt. Type Provider Facility Loc./Unit Complaint [id number] 09/24/2017 16:14:00 09/26/2017 12:45:00 DIS Inpatient HILDA DOYLE, NIKKO [facility]il [facility] 4TH DENTAL ABSCESS,SEPSIS [id number] 04/05/2016 17:44:00 04/05/2016 19:01:00 DIS Emergency LISET DENNISON DO [facility] ER COUGH,COLD SYMPTOMS [id number] 08/26/2012 15:24:00 08/26/2012 20:22:00 DIS Emergency VINCE CHAO [facility] ER VOMITING [id number] 03/21/2018 13:12:00 ACT Emergency ANIVAL WILLIAMSON MD [facility] ER TOOTH PAIN [id number] 02/10/2011 05:30:00 Document Registration [id number] 02/07/2011 12:42:00 Document Registration [id number] 10/26/2017 09:45:00 10/26/2017 23:59:59 CLS Outpatient ROSA DOYLE, LISA [facility]
== END 2018-03-21 14:04 | disposition home or self-care (01) ==
LOC: EDUNIT# 13:10 → ER 13:12
DX: K02.9 Dental caries, unspecified (principal); K04.7 Periapical abscess without sinus; G80.9 Cerebral palsy, unspecified; Z98.890 Other specified postprocedural states; Z90.49 Acquired absence of other specified parts of digestive tract
CPT/HCPCS: 99283

== ENCOUNTER 2021-10-12 23:43 | Emergency (ER) | payer MEDICAID ==
[~2021-10-12] VITALS: Ht 177.8 cm; Wt 95.2 kg
[~2021-10-12 23:43] MED LIST changes: +ACET600C5 PO; +AMOX1TAB12 PO; +ATOM25CA5 PO; +BUPR300T98 PO; +DOXY-311 PO; -DOXY100C42 PO; +LEVO15TA5 PO; +METO50TA7 PO; +ONDA4TAB11 SL
--- NOTE | 2021-10-13 00:10 | ED Lower Extremity ---
General Chief Complaint: Lower Extremity Stated Complaint: ROLLED RT ANKLE,PAINFUL Source: patient Exam Limitations: no limitations History of Present Illness Date Seen by Provider: Oct 13, 2021 Time Seen by Provider: 00:02 Initial Comments Patient to the ER by private conveyance with his significant other and chief complaint of increasing pain and swelling in his right ankle down to his foot. He rolled it inward yesterday. He was using ice and naproxen but since it continued to swell and continued to hurt he decided it might be fractured and wanted to get it looked at. No previous injury. Not on blood thinners Allergies and Home Medications Allergies Coded Allergies: No Known Drug Allergies (Unverified , 08/17/08) Patient Home Medication List Home Medication List Reviewed: Yes Acetylcysteine (O-Dnehrr-p-Cysteine) 600 Mg Capsule, 600 MG PO DAILY, (Reported) Entered as Reported by: MAUREEN CAMPBELL on 07/12/21 1109 Amoxicillin/Potassium Clav (Amox Tr-K Clv 875-125 mg Tab) 1 Each Tablet, 1 EACH PO BID Prescribed by: YOBANY GALLOWAY on 07/19/21 1527 Atomoxetine HCl (Atomoxetine HCl) 25 Mg Capsule, 25 MG PO BID, (Reported) Entered as Reported by: MAUREEN CAMPBELL on 07/12/21 1109 Bupropion HCl (Bupropion Xl) 300 Mg Tab.er.24h, 300 MG PO DAILY, (Reported) Entered as Reported by: MAUREEN CAMPBELL on 07/12/21 1109 Hydrocodone/Acetaminophen (Hydrocodone-Acetamin 5-325 mg) 1 Each Tablet, 1 EACH PO Q4H PRN for PAIN-MODERATE (5-7) Prescribed by: YOBANY GALLOWAY on 07/19/21 1528 Levomefolate Calcium (l-Methylfolate) 15 Mg Tablet, 15 MG PO DAILY, (Reported) Entered as Reported by: MAUREEN CAMPBELL on 07/12/21 110 Metoprolol Succinate (Metoprolol Succinate) 50 Mg Tab.er.24h, 50 MG PO DAILY Prescribed by: YOBANY GALLOWAY on 07/19/21 1527 Review of Systems Constitutional: No chills, No fever EENTM: No ear discharge, No ear pain Respiratory: No cough, No short of breath Cardiovascular: No chest pain, No edema Gastrointestinal: No abdominal pain, No nausea Genitourinary: No discharge, No dysuria All Other Systems Reviewed Negative Unless Noted: Yes Past Kmdhksd-Gckini-Aqrsbc Hx Patient Social History Tobacco Use?: No Use of E-Cig and/or Vaping dev: No Substance use?: No Immunizations Up To Date Tetanus Booster (TDap): Unknown Seasonal Allergies Seasonal Allergies: No Past Medical History Surgeries: Yes (DIAPH.HERNIA REPAIR,FEEDING TUBE,ADHESIONS,APPY, lipoma excision) Abdominal, Appendectomy Respiratory: Yes (SPONTANEOUS PNEUMOTHORAX A BABY) Currently Using CPAP: No Currently Using BIPAP: No Cardiac: No Neurological: Yes (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 No Pertinent Family Hx Physical Exam Vital Signs Vital Signs - First Documented 10/12/21 23:56 Temp 36.6 Pulse 115 Resp 18 B/P (MAP) 120/85 (97) Pulse Ox 98 O2 Delivery Room Air Capillary Refill : Height, Weight, BMI Height: 5'10.00" Weight: 240lbs. 0.0oz. 108.413603ad; 30.11 BMI Method:Stated General Appearance: WD/WN, no apparent distress HEENT: PERRL/EOMI, pharynx normal Cardiovascular: normal peripheral pulses, regular rate, rhythm Respiratory: no respiratory distress, no accessory muscle use Legs: bilateral leg non-tender, bilateral leg normal inspection, bilateral leg normal range of motion, bilateral leg no evidence of injury Ankles: left ankle non-tender, left ankle normal inspection, left ankle normal range of motion, left ankle no evidence of injury; right ankle bone tenderness (Posterior right lateral malleolus), right ankle ecchymosis, right ankle joint effusion (Moderate to large lateral), right ankle pain, right ankle soft tissue tenderness, right ankle swelling Feet: left foot non-tender, left foot normal inspection, left foot normal range of motion, left foot no evidence of injury; right foot bone tenderness (Fifth metatarsal), right foot ecchymosis, right foot pain, right foot soft tissue tenderness, right foot swelling (Lateral) Neurologic/Tendon: normal sensation, normal motor functions, normal tendon functions Neurologic/Psychiatric: alert, normal mood/affect, oriented x 3 Skin: normal color, ecchymosis Progress/Results/Core Measures Results/Orders My Orders Orders - RISSA STREETER Foot, Right, 3 View (10/13/21 00:05) Ankle, Right, 3 Views (10/13/21 00:05) Vital Signs/I&O 10/12/21 23:56 Temp 36.6 Pulse 115 Resp 18 B/P (MAP) 120/85 (97) Pulse Ox 98 O2 Delivery Room Air Progress Progress Note : Time: 00:09 Progress Note Plain films right ankle and right foot. Encouraged ice. Diagnostic Imaging Diagonstic Imaging: CT Plain Films/CT/US/NM/MRI: ankle (Right) Comments No acute osseous fracture Reviewed: Reviewed by Me Diagonstic Imaging: Xray Plain Films/CT/US/NM/MRI: other (Right foot) Comments No acute osseous fracture Reviewed: Reviewed by Me Departure Impression Primary Impression: Right ankle sprain Qualified Codes: S93.401A - Sprain of unspecified ligament of right ankle, initial encounter Disposition: 01 HOME, SELF-CARE Condition: Stable Departure-Patient Inst. Decision time for Depature: 00:45 Referrals: [facility] ([place]) Primary Care Physician LISA LEÓN PA (Family) Primary Care Physician LISA WOO DPM, JUSTIN S MD WILDE, CORIN Q DPM Patient Instructions: Ankle Sprain ED Add. Discharge Instructions: Keep the ankle and foot wrapped with an Ted wrap and elevate when not in use. Ice 20 minutes on every 2 hours for the first 2 to 3 days to reduce swelling and pain. Tylenol and ibuprofen as necessary for pain. Alternatively from ibuprofen you could use naproxen 2 capsules twice a day. Follow-up with primary care if not seeing some improvement in 1 to 2 weeks. All discharge instructions reviewed with patient and/or family. Voiced understanding. RISSA STREETER Oct 13, 2021 00:10
[2021-10-13 01:10] VITALS: BP 114/76
--- NOTE | 2021-10-13 07:10 | Diagnostic Imaging Report ---
EXAMINATION: Right ankle 3 views HISTORY: Ankle injury COMPARISON: None available. FINDINGS: There is severe lateral malleolar swelling. No acute fracture is seen. The ankle mortise is intact. Joint spaces are normal. IMPRESSION: 1. Severe lateral malleolar swelling without acute fracture seen. Dictated by: Dictated on workstation # [id number]
--- NOTE | 2021-10-13 07:17 | Diagnostic Imaging Report ---
EXAMINATION: Right foot 3 views HISTORY: Foot injury. COMPARISON: None available. FINDINGS: There is a small ossific density between the cuboid and lateral cuneiform seen on the oblique view only. Otherwise, no fracture is seen. Alignment is normal. Joint spaces are normal. IMPRESSION: 1. Small ossific density between the cuboid and lateral cuneiform, consider weightbearing films and/or CT for further evaluation of possible Lisfranc injury. Dictated by: Dictated on workstation # [id number]
== END 2021-10-13 01:13 | disposition home or self-care (01) ==
LOC: EDUNIT# 23:43 → ER 23:46
DX: S93.401A Sprain of unspecified ligament of right ankle, initial encounter (principal); S90.31XA Contusion of right foot, initial encounter; X50.1XXA Overexertion from prolonged static or awkward postures, initial encounter
CPT/HCPCS: 73610; 73630

== ENCOUNTER → 2021-10-18 | Outpatient (CLI) | payer MEDICAID ==
[~2021-10-18] MED LIST changes: +CATHETER FLUSH 10 ML SYR IV PRN; +HOLD METFORMIN - RECEIVED CONTRAST 20 ML VIAL IV SCH; +IOHEXOL 350 MG/ML 100 ML (OMNIPAQUE 350) VIAL IV ONE; +NS 100 ML (IVPB) BAG IV ONE
--- NOTE | 2021-10-18 14:07 | Diagnostic Imaging Report ---
PROCEDURE: CT angiography of the chest with contrast. TECHNIQUE: Multiple contiguous axial images were obtained through the chest after uneventful bolus administration of intravenous contrast. 3D reconstructed CTA MIP acquisitions were also performed. Auto Exposure Controls were utilized during the CT exam to meet ALARA standards for radiation dose reduction. DATE: October 18, 2021. COMPARISON: Chest radiograph April 05, 2016. INDICATION: 35-year-old male, chest pain. Previously questioned cardiac mass. FINDINGS: There is a centrally calcified benign right lower lobe pulmonary nodule measuring 1.4 cm in size on axial image 108. There are mild tree-in-bud type nodularity opacities in left lower lobe on axial image 122 and adjacent sequential images. There is no pneumothorax. There is no pleural effusion. The central airways are patent. The left lung appears subtly hyperlucent compared to the right. There is no identified pulmonary embolus. The main pulmonary artery diameter measures within normal limits at 2.2 cm. The heart is not enlarged. There is no CT apparent intracardiac mass. There is no pericardial effusion. There are calcified right hilar lymph nodes likely reflecting sequela of prior granulomatous disease. There is no identified noncalcified abnormally enlarged mediastinal, hilar, or axillary lymph node which meets CT size criteria for adenopathy. There is nonspecific wall thickening of the stomach. There is no identified acute bony abnormality. IMPRESSION: CT CHEST. 1. No identified pulmonary embolus. 2. No CT apparent intracardiac mass. 3. Benign calcified right lower lobe pulmonary nodule and right hilar lymph nodes most likely relating to sequela prior granulomatous disease. 4. Mild tree-in-bud nodularity in the left lower lobe likely relating to process spreading via endobronchial means such as aspiration or infectious bronchiolitis. This is of unclear exact age. Recommend correlation clinically. 5. The left lung appears slightly hyperlucent compared to the right, most likely reflecting small airways disease and air trapping. The central airways appear grossly patent. Dictated by: Dictated on workstation # [id number]
== END ==
LOC: RAD 12:45
PROVIDERS: ATTEND Thoracic Surgery (Cardiothoracic Vascular Surgery)
DX: I26.99 Other pulmonary embolism without acute cor pulmonale (principal)
CPT/HCPCS: 71275

== ENCOUNTER → 2021-11-16 | Outpatient (CLI) | payer MEDICAID ==
[~2021-11-16] MED LIST changes: +BISA-65 PO; -CATHETER FLUSH 10 ML SYR IV PRN; -HOLD METFORMIN - RECEIVED CONTRAST 20 ML VIAL IV SCH; -IOHEXOL 350 MG/ML 100 ML (OMNIPAQUE 350) VIAL IV ONE; -NS 100 ML (IVPB) BAG IV ONE
--- NOTE | 2021-11-16 15:59 | Diagnostic Imaging Report ---
PROCEDURE: US Venous Lower Ext Tenzin. TECHNIQUE: Multiple real-time grayscale images were obtained over the lower extremities in various projections, bilaterally. Additional duplex Doppler and color Doppler images were also obtained. INDICATION: Right atrial mass. There is no evidence of right or left lower extremity DVT. Both lower extremity deep venous systems demonstrate normal compressibility with normal response to augmentation and Valsalva. No fluid collection or mass is detected. IMPRESSION: No evidence of right or left lower extremity DVT. Dictated by: Dictated on workstation # [id number]
== END ==
LOC: RAD 14:14
PROVIDERS: ATTEND Thoracic Surgery (Cardiothoracic Vascular Surgery)
DX: I26.99 Other pulmonary embolism without acute cor pulmonale (principal); I51.89 Other ill-defined heart diseases; I10 Essential (primary) hypertension; Z87.891 Personal history of nicotine dependence
CPT/HCPCS: 93970

== ENCOUNTER 2021-11-17 05:41 | Outpatient (CLI) | payer MEDICAID ==
[~2021-11-17] VITALS: Ht 177.8 cm; Wt 93.9 kg
[~2021-11-17 05:41] MED LIST changes: -BISA-65 PO
[2021-11-17] MEDS ORDERED: BISA-65 PO (10:57)
== END 2021-11-17 11:04 | disposition home or self-care (01) ==
LOC: PREOP 05:41
PROVIDERS: ATTEND Surgery
DX: Z01.818 Encounter for other preprocedural examination (principal)

== ENCOUNTER 2021-11-28 18:44 | Emergency (ER) | payer MEDICAID ==
[~2021-11-28] VITALS: Ht 180.3 cm; Wt 97.3 kg
[~2021-11-28 18:44] MED LIST changes: +BISA-65 PO
[2021-11-28] MEDS ORDERED: TETANUS,DIPTH,PERTUSS P/F (BOOSTRIX) 0.5 ML VIAL IM ONE (19:00)
--- NOTE | 2021-11-28 19:03 | ED Integumentary General ---
General Stated Complaint: L HAND LAC Source: patient Exam Limitations: no limitations History of Present Illness Date Seen by Provider: Nov 28, 2021 Time Seen by Provider: 18:48 Initial Comments Patient to the ER by private conveyance from home with chief complaint just prior to arrival he lacerated the dorsal portion of his proximal phalanx of his second and third digits on his left hand. He is right-handed. He was using a wood chisel and accidentally cut himself. The bleeding was stopped for he got in here. He is not sure if he is up-to-date on tetanus vaccines. He has full range of motion of his fingers and no numbness or tingling Allergies and Home Medications Allergies Coded Allergies: No Known Drug Allergies (Unverified , 08/17/08) Patient Home Medication List Home Medication List Reviewed: Yes Acetylcysteine (U-Xjlwcm-x-Cysteine) 600 Mg Capsule, 600 MG PO DAILY, (Reported) Entered as Reported by: MAUREEN CAMPBELL on 07/12/21 1109 Atomoxetine HCl (Atomoxetine HCl) 25 Mg Capsule, 25 MG PO BID, (Reported) Entered as Reported by: MAUREEN CAMPBELL on 07/12/21 1109 Bisacodyl (Dulcolax) 5 Mg Tablet.dr, 5 MG PO PRN, (Reported) Entered as Reported by: FLORA SU on 11/17/21 1057 Bupropion HCl (Bupropion Xl) 300 Mg Tab.er.24h, 300 MG PO DAILY, (Reported) Entered as Reported by: MAUREEN CAMPBELL on 07/12/21 1109 Levomefolate Calcium (l-Methylfolate) 15 Mg Tablet, 15 MG PO DAILY, (Reported) Entered as Reported by: MAUREEN CAMPBELL on 07/12/21 1109 Metoprolol Succinate (Metoprolol Succinate) 50 Mg Tab.er.24h, 50 MG PO DAILY Prescribed by: YOBANY GALLOWAY on 07/19/21 1527 Review of Systems Review of Systems Constitutional: No chills, No diaphoresis EENTM: No ear discharge, No ear pain Respiratory: No cough, No short of breath Cardiovascular: No chest pain, No edema All Other Systems Reviewed Negative Unless Noted: Yes Past Ufigfro-Vcimri-Arkxij Hx Patient Social History Tobacco Use?: No Use of E-Cig and/or Vaping dev: No Immunizations Up To Date Tetanus Booster (TDap): Unknown First/Initial COVID19 Vaccinat: YES Second COVID19 Vaccination Steven: YES Third COVID19 Vaccination Date: YES Seasonal Allergies Seasonal Allergies: No Past Medical History Surgeries: Yes (DIAPH.HERNIA REPAIR,FEEDING TUBE,ADHESIONS,APPY, lipoma excision) Abdominal, Appendectomy Respiratory: Yes (SPONTANEOUS PNEUMOTHORAX A BABY) Currently Using CPAP: No Currently Using BIPAP: No Cardiac: Yes ("RESTING HIGH HEART RATE") Heart Murmur Neurological: Yes (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 No Pertinent Family Hx Physical Exam Vital Signs Capillary Refill : General Appearance: WD/WN, no apparent distress HEENT: PERRL/EOMI, pharynx normal Neck: full range of motion, normal inspection Cardiovascular: normal peripheral pulses, regular rate, rhythm Respiratory: no respiratory distress, no accessory muscle use Skin: other (Proximal phalanx of the third finger and second finger dorsally has a superficial laceration into the dermis not gaped. Well approximated clean and no foreign object seen. Hemostatic. Left hand. Including the superficial abrasion it is 2 cm long.) Procedures/Interventions Wound Location: Upper Extremities Other Wound Location Left hand second and third digit dorsal proximal phalanx. Wound's Depth, Shape: superficial, linear, sub Q Wound Explored: clean Irrigated w/ Saline (ccs): 50 Betadine Prep?: No (Chlorhexidine and sterile saline) Other Closure Supply: Wound Adhesive Progress/Results/Core Measures Results/Orders My Orders Orders - RISSA STREETER Dipht,Pertmaryjane(Acell),Tet Adult (Boostrix (11/28/21 19:00) Progress Progress Note : Time: 19:01 Progress Note Tetanus vaccine and cyanoacrylate. Departure Impression Primary Impression: Laceration of finger, left Qualified Codes: S61.213A - Laceration without foreign body of left middle finger without damage to nail, initial encounter Disposition: HOME, SELF-CARE Condition: Stable Departure-Patient Inst. Decision time for Depature: 19:02 Referrals: [facility]/YANELI (PCP) Primary Care Physician LISA LEÓN (Family) Primary Care Physician Patient Instructions: Wound Care (DC), Laceration Repair With Glue ED Add. Discharge Instructions: Keep site clean with soap and water. If it becomes inflamed or red going up your hand or has drainage from the wound or you develop fevers or chills these may be signs of an infection and you should follow-up with your primary care doctor for reevaluation. RISSA STREETER Nov 28, 2021 19:03
[2021-11-28 19:17] VITALS: BP 124/78
[2021-11-30] MEDS ORDERED: PANT40TA2 PO (12:37)
== END 2021-11-28 19:17 | disposition home or self-care (01) ==
LOC: EDUNIT# 18:44 → ER 18:45
DX: S61.213A Laceration without foreign body of left middle finger without damage to nail, initial encounter (principal); S61.211A Laceration without foreign body of left index finger without damage to nail, initial encounter; Z23 Encounter for immunization; W27.0XXA Contact with workbench tool, initial encounter
CPT/HCPCS: 90715; 99284

== ENCOUNTER 2021-11-30 10:22 | Day surgery (SDC) | payer MEDICAID ==
[2021-11-30] VITALS (7 sets, daily range): BP systolic 103–114; BP diastolic 63–88
[~2021-11-30] VITALS: Ht 177.8 cm; Wt 97.3 kg
[2021-11-30] MEDS ORDERED: LACTATED RINGERS 1,000 ML IV ONE (10:29)
[2021-11-30] MEDS ORDERED: LACTATED RINGERS 1,000 ML IV STA (10:30)
[2021-11-30] MEDS ORDERED: HURRICAINE EXT TUBE (BENZOCAINE) XX PRN (10:30)
--- NOTE | 2021-11-30 10:58 | Progress Note-Pre Operative ---
Pre-Operative Progress Note Date of Available H&P: Nov 08, 2021 Date H&P Reviewed: Nov 30, 2021 Time H&P Reviewed: 10:58 History & Physical: H&P Reviewed, Patient Examed, No changes noted Pre-Operative Diagnosis: hx polyp, gerd YOBANY GALLOWAY DO Nov 30, 2021 10:58
[2021-11-30] MEDS ORDERED: MIDAZOLAM 2 MG/2 ML (VERSED) VIAL ONE (12:01)
[2021-11-30] MEDS ORDERED: PROPOFOL INJECTION 50 ML IV ONE (12:02)
[2021-11-30] MEDS ORDERED: PANT40TA2 PO (12:37)
--- NOTE | 2021-11-30 12:37 | Discharge Inst-Simple/Standard ---
Discharge Inst-Standard Discharge Medications New, Converted or Re-Newed RX: Transmitted to Pharmacy Patient Instructions/Follow Up Plan of Care/Instructions/FU: 2 weeks Lakeisha Activity as Tolerated: Yes Discharge Diet: Regular Diet YOBANY GALLOWAY DO Nov 30, 2021 12:37
--- NOTE | 2021-11-30 12:38 | Progress Note-Post Operative ---
Post-Operative Progess Note Surgeon (s)/Social Services Specialist (s) Surgeon YOBANY GALLOWAY DO Social Services Specialist: na Pre-Operative Diagnosis hx polyp, gerd Post-Operative Diagnosis gastritis, duodenitis, normal colon Procedure & Operative Findings Date of Procedure 11/30/21 Procedure Performed/Findings egd c biopsies, colonoscopy Anesthesia Type per cleaning associate Estimated Blood Loss Estimated blood loss (mL): none Specimens/Packing Specimens Removed antrum, ge YOBANY GALLOWAY DO Nov 30, 2021 12:38
--- NOTE | 2021-11-30 14:21 | Anesthesia-General Post-Op ---
MAC Patient Condition Mental Status/LOC: Same as Preop Cardiovascular: Satisfactory Nausea/Vomiting: Absent Respiratory: Satisfactory Pain: Controlled Complications: Absent Post Op Complications Complications None Follow Up Care/Instructions Patient Instructions None needed. Anesthesiology Discharge Order Discharge Order Patient is doing well, no complaints, stable vital signs, no apparent adverse anesthesia problems. No complications reported per nursing. TAMELA SHIELDS CRNA Nov 30, 2021 14:21
--- NOTE | 2021-11-30 16:14 | OPERATIVE REPORT ---
DATE OF SERVICE: 11/30/2021 PREOPERATIVE DIAGNOSES: Gastroesophageal reflux disease and history of polyps. POSTOPERATIVE DIAGNOSES: Gastritis, duodenitis, and normal colon. PROCEDURES PERFORMED: EGD with biopsies, colonoscopy. SURGEON: Yobany Suazo DO. ANESTHESIA: Per DRESS DESIGNER. ESTIMATED BLOOD LOSS: None. COMPLICATIONS: None. SPECIMENS: Antrum, GE junction. INDICATIONS FOR PROCEDURE: The patient is a 35-year-old male, who had a cecal bascule, had to have a right colon resection. He was found to have a serrated polyp. He was recommended colonoscopy. He also has GERD, which he understands the risks and benefits of procedures and wished to proceed. Consent was signed in the chart. DESCRIPTION OF PROCEDURE: The patient was taken to the endoscopy suite and placed in the left lateral recumbent position. Timeout was performed. Scope was inserted in the mouth, down the esophagus, stomach and into the duodenum without difficulty. Changes of duodenitis in the first portion were present. No polyps, masses or ulcerations. Scope was slowly retracted back into the stomach, where it was further insufflated. Some changes of gastritis were present. Biopsy of the antrum was obtained. Scope was retroflexed noting no other pathology. Scope was returned to its normal position, slowly withdrawn to distal esophagus. Biopsy of the GE junction was obtained. No polyps, masses or ulcerations. Scope was then slowly retracted back until completely removed, noting no other pathology. Digital rectal exam was performed. No palpable polyps, masses or ulcerations. Scope was inserted in the rectum and advanced all the way to the ileocolonic anastomosis. No polyps, masses or ulcerations present. The staple line was visualized. Prep was adequate. Scope was slowly retracted back. No polyps, masses or ulcerations of the ileocolonic anastomosis transverse, descending, sigmoid colon. Once in the rectum, scope was retroflexed noting no other pathology. Scope was returned to its normal position, slowly withdrawn until completely removed. The patient tolerated the procedure well without any complications, taken to recovery room in stable condition. RECOMMENDATIONS: The patient was started on Protonix 40 mg daily. We will follow up on pathology. We will need repeat colonoscopy in 5 years. Any issues before that be seen at that time. Job ID: [id number] DocumentID: [id number] Dictated Date: 11/30/2021 12:41:23 Manager Bar Date: 11/30/2021 16:13:07 Dictated By: YOBANY SUAZO DO
== END 2021-11-30 13:35 | disposition home or self-care (01) ==
LOC: ENDO 10:22
PROVIDERS: ATTEND Surgery
DX: Z12.11 Encounter for screening for malignant neoplasm of colon (principal); K29.90 Gastroduodenitis, unspecified, without bleeding; K21.00 Gastro-esophageal reflux disease with esophagitis, without bleeding; Z86.010 Personal history of colon polyps; Z87.891 Personal history of nicotine dependence

== ENCOUNTER 2021-11-30 15:50 | Emergency (ER) | payer MEDICAID ==
[~2021-11-30 15:50] MED LIST changes: +PANT40TA2 PO
--- NOTE | 2021-11-30 16:31 | ED Abdominal Pain ---
General Chief Complaint: Abdominal/GI Problems Stated Complaint: S/P COLONOSCOPY-ABD PAIN Nursing Triage Note: PT AMB TO RM 3 WITH C/O ABD CRAMPING AFTER A COLONOSCOPY TODAY. PT STATES HE HAD A COLONOSCOPY AROUND [address] GALLOWAY AND WAS HOME FOR 15 MIN WHEN THE CRAMPING STARTED Source of Information: Patient Exam Limitations: No Limitations (MOR GOMEZ) History of Present Illness Date Seen by Provider: Nov 30, 2021 Time Seen by Provider: 16:29 Initial Comments Patient is a 35-year-old male who presents ED with abdominal cramping diffuse worse in his upper abdomen. This started about 15 minutes ago. Patient returned from home from a colonoscopy performed by Dr. Galloway this morning. Patient states started having abdominal pain ate a sandwich but did not relieve his pain. Denies any nausea, vomiting, diarrhea, increasing pain. Denies any urinary symptoms. Patient was diagnosed with gastritis, duodenitis. Patient appears in no acute distress. Patient [place] fever, chills, chest pain, shortness of breath, cough, headache, dizziness (MOR GOMEZ) Allergies and Home Medications Allergies Coded Allergies: No Known Drug Allergies (Unverified , 08/17/08) Patient Home Medication List Home Medication List Reviewed: Yes (MOR GOMEZ) Acetylcysteine (Z-Wvgmkr-y-Cysteine) 600 Mg Capsule, 600 MG PO DAILY, (Reported) Entered as Reported by: MAUREEN CAMPBELL on 07/12/21 110 Atomoxetine HCl (Atomoxetine HCl) 25 Mg Capsule, 25 MG PO BID, (Reported) Entered as Reported by: MAUREEN CAMPBELL on 07/12/21 110 Bisacodyl (Dulcolax) 5 Mg Tablet.dr, 5 MG PO PRN, (Reported) Entered as Reported by: FLORA SU on 11/17/21 1057 Bupropion HCl (Bupropion Xl) 300 Mg Tab.er.24h, 300 MG PO DAILY, (Reported) Entered as Reported by: MAUREEN CAMPBELL on 07/12/21 110 Levomefolate Calcium (l-Methylfolate) 15 Mg Tablet, 15 MG PO DAILY, (Reported) Entered as Reported by: MAUREEN CAMPBELL on 07/12/21 110 Metoprolol Succinate (Metoprolol Succinate) 50 Mg Tab.er.24h, 50 MG PO DAILY Prescribed by: YOBANY GALLOWAY on 07/19/21 1527 Pantoprazole Sodium (Protonix) 40 Mg Tablet.dr, 40 MG PO DAILY Prescribed by: YOBANY GALLOWAY on 11/30/21 1237 Review of Systems Review of Systems Constitutional: No chills, No diaphoresis, No malaise, No weakness EENTM: No Double Vision Respiratory: Denies Cough, Denies Orthopnea Cardiovascular: Denies Chest Pain Gastrointestinal: Abdominal Pain; Denies Diarrhea, Denies Nausea, Denies Vomiting Genitourinary: Denies Burning, Denies Discharge Musculoskeletal: No back pain, No joint pain (MOR GOMEZ) All Other Systems Reviewed Negative Unless Noted: Yes (MOR GOMEZ) Past Vrxdfpc-Bbatzk-Qadffv Hx Patient Social History Tobacco Use?: No Use of E-Cig and/or Vaping dev: No Substance use?: No Alcohol Use?: No Pt feels they are or have been: No (MOR GOMEZ) Immunizations Up To Date Tetanus Booster (TDap): Unknown First/Initial COVID19 Vaccinat: YES Second COVID19 Vaccination Steven: YES Third COVID19 Vaccination Date: YES COVID19 Vaccine Knot Borer: JELLY (MOR GOMEZ) Seasonal Allergies Seasonal Allergies: No (MOR GOMEZ) Past Medical History Surgery/Hospitalization HX: CEREBRAL PALSY, GERD BOWEL RESECTION Surgeries: Yes (DIAPH.HERNIA REPAIR,FEEDING TUBE,ADHESIONS,APPY, lipoma excision) Abdominal, Appendectomy Respiratory: Yes (SPONTANEOUS PNEUMOTHORAX A BABY) Currently Using CPAP: No Currently Using BIPAP: No Cardiac: Yes ("RESTING HIGH HEART RATE") Heart Murmur Neurological: Yes (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 No Pertinent Family Hx (MOR GOMEZ) Physical Exam Vital Signs Vital Signs - First Documented 11/30/21 16:02 Temp 36.2 Pulse 117 Resp 16 B/P (MAP) 120/92 (101) (ILA LUCAS MD) Vital Signs Capillary Refill : (MOR GOMEZ) Height/Weight/BMI Height: 5'10.00" Weight: 240lbs. 0.0oz. 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: 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 II-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 nml as tested, no motor/sensory deficits, alert, normal mood/affect, oriented x 3 Skin: normal color, warm/dry (MOR GOMEZ) Progress/Results/Core Measures Results/Orders Lab Results Laboratory Tests Test 11/30/21 16:50 Range/Units White Blood Count 9.0 4.3-11.0 10^3/uL Red Blood Count 5.14 4.30-5.52 10^6/uL Hemoglobin 14.2 13.3-17.7 g/dL Hematocrit 43 40-54 % Mean Corpuscular Volume 84 80-99 fL Mean Corpuscular Hemoglobin 28 25-34 pg Mean Corpuscular Hemoglobin Concent 33 32-36 g/dL Red Cell Distribution Width 12.6 10.0-14.5 % Platelet Count 324 130-400 10^3/uL Mean Platelet Volume 8.8 L 9.0-12.2 fL Immature Granulocyte % (Auto) 0 % Neutrophils (%) (Auto) 68 42-75 % Lymphocytes (%) (Auto) 19 12-44 % Monocytes (%) (Auto) 9 0-12 % Eosinophils (%) (Auto) 3 0-10 % Basophils (%) (Auto) 1 0-10 % Neutrophils # (Auto) 6.1 1.8-7.8 10^3/uL Lymphocytes # (Auto) 1.7 1.0-4.0 10^3/uL Monocytes # (Auto) 0.9 0.0-1.0 10^3/uL Eosinophils # (Auto) 0.3 0.0-0.3 10^3/uL Basophils # (Auto) 0.1 0.0-0.1 10^3/uL Immature Granulocyte # (Auto) 0.0 0.0-0.1 10^3/uL Sodium Level 137 135-145 MMOL/L Potassium Level 3.8 3.6-5.0 MMOL/L Chloride Level 104 98-107 MMOL/L Carbon Dioxide Level 20 L 21-32 MMOL/L Anion Gap 13 5-14 MMOL/L Blood Urea Nitrogen 12 7-18 MG/DL Creatinine 1.38 H 0.60-1.30 MG/DL Estimat Glomerular Filtration Rate 68 BUN/Creatinine Ratio 9 Glucose Level 103 70-105 MG/DL Calcium Level 9.4 8.5-10.1 MG/DL Corrected Calcium 8.5-10.1 MG/DL Total Bilirubin 0.9 0.1-1.0 MG/DL Aspartate Amino Transf (AST/SGOT) 15 5-34 U/L Alanine Aminotransferase (ALT/SGPT) 22 0-55 U/L Alkaline Phosphatase 85 40-136 U/L Total Protein 7.7 6.4-8.2 GM/DL Albumin 4.7 H 3.2-4.5 GM/DL Lipase 13 8-78 U/L (ILA LUCAS MD) Vital Signs/I&O 11/30/21 11/30/21 16:02 18:00 Temp 36.2 36.2 Pulse 117 90 Resp 16 16 B/P (MAP) 120/92 (101) 119/90 (ILA LUCAS MD) Blood Pressure Mean: 101 Departure Communication (PCP) Lab work was otherwise unremarkable. Patient had colonoscopy EGD performed by Dr. Galloway today that showed gastritis, duodenitis. No active bleeding or mass. Biopsy was obtained of the gastric antrum. Patient Was recommended Protonix which which was given a dose here as well as a GI cocktail with some improvement. Abdominal x-ray without evidence of bowel obstruction but did noted air in the abdomen. Likely secondary to the colonoscopy. Discussed clear liquids until bowels start to regulate. Continue with your Protonix. If any w orsening symptoms return back to ED for further evaluation. Patient appeared upset with his care. Discussed with patient that he does have inflammation of stomach in duodenum which may be result of his some of his pain. Discussed with patient that he may have some discomfort until his bowels regulate post colonoscopy. There does not appear to be a surgical abdomen. His lab work was reassuring. Discussed this with Dr. Galloway who agrees with this plan of action. Patient left upset. Did offer IV pain medication for his pain. Patient refused (MOR GOMEZ) Impression Primary Impression: Abdominal pain Disposition: HOME, SELF-CARE Condition: Stable Departure-Patient Inst. Decision time for Depature: 17:50 (MOR GOMEZ) Referrals: YOBANY GALLOWAY DAVID F MD (PCP/Family) Primary Care Physician Patient Instructions: Abdominal Pain, Adult ED MOR GOMEZ Nov 30, 2021 16:31 ILA LUCAS MD Dec 03, 2021 06:26
--- NOTE | 2021-11-30 16:43 | Diagnostic Imaging Report ---
INDICATION: Abdominal cramping status post colonoscopy. COMPARISON: 07/17/2021. FINDINGS: Multiple frontal radiographic views of the abdomen were obtained. There is mild amount of gas scattered throughout the large and small bowel, but no abnormal dilatation is seen. There is no large collection of free intraperitoneal air. No unexpected radiopaque foreign bodies are identified. Osseous structures show no gross acute abnormalities. IMPRESSION: 1. Mild amount of gas scattered throughout the large and small bowel, but no abnormal dilatation. 2. No large collection of free intraperitoneal air. Dictated by: Dictated on workstation # [id number]
[2021-11-30] MEDS ORDERED: LIDOCAINE 2% VISCOUS 15 ML UDC PO ONE (16:45)
[2021-11-30] MEDS ORDERED: ANTACID SUSP 30 ML UDC (MYLANTA) PO ONE (16:45)
[2021-11-30 16:57] LABS: BASOPHILS # (AUTO) 0.1 10^3/uL (0.0-0.1); BASOPHILS % (AUTO) 1 % (0-10); EOSINOPHILS # (AUTO) 0.3 10^3/uL (0.0-0.3); EOSINOPHILS % (AUTO) 3 % (0-10); HEMATOCRIT 43 % (40-54); HEMOGLOBIN 14.2 g/dL (13.3-17.7); LYMPHOCYTES # (AUTO) 1.7 10^3/uL (1.0-4.0); LYMPHOCYTES % (AUTO) 19 % (12-44); MEAN CORPUSCULAR HEMOGLOBIN 28 pg (25-34); MEAN CORPUSCULAR HGB CONC 33 g/dL (32-36); MEAN CORPUSCULAR VOLUME 84 fL (80-99); MEAN PLATELET VOLUME 8.8 fL (9.0-12.2); MONOCYTES # (AUTO) 0.9 10^3/uL (0.0-1.0); MONOCYTES % (AUTO) 9 % (0-12); NEUTROPHILS # (AUTO) 6.1 10^3/uL (1.8-7.8); NEUTROPHILS % (AUTO) 68 % (42-75); PLATELET COUNT 324 10^3/uL (130-400)
[2021-11-30 17:11] LABS: ALBUMIN 4.7 GM/DL (3.2-4.5); CHLORIDE 104 MMOL/L (98-107); POTASSIUM 3.8 MMOL/L (3.6-5.0)
[2021-11-30 17:12] LABS: SODIUM 137 MMOL/L (135-145)
[2021-11-30 17:13] LABS: CALCIUM 9.4 MG/DL (8.5-10.1)
[2021-11-30 17:14] LABS: GLUCOSE 103 MG/DL (70-105); TOTAL PROTEIN 7.7 GM/DL (6.4-8.2)
[2021-11-30 17:15] LABS: CARBON DIOXIDE 20 MMOL/L (21-32)
[2021-11-30 17:16] LABS: BILIRUBIN,TOTAL 0.9 MG/DL (0.1-1.0)
[2021-11-30 17:17] LABS: ALKALINE PHOSPHATASE 85 U/L (40-136)
[2021-11-30 17:18] LABS: CREATININE SERUM 1.38 MG/DL (0.60-1.30); GFR ESTIMATED 68
[2021-11-30 17:19] LABS: BUN/CREATININE RATIO 9
[2021-11-30 17:20] LABS: ALANINE AMINOTRANSFERASE 22 U/L (0-55)
[2021-11-30 17:21] LABS: LIPASE 13 U/L (8-78)
[2021-11-30] MEDS ORDERED: PANTOPRAZOLE 40 MG (PROTONIX) TAB PO ONE (17:30)
[2021-11-30 18:00] VITALS: BP 119/90
== END 2021-11-30 18:12 | disposition home or self-care (01) ==
LOC: EDUNIT# 15:50 → ER 15:53
DX: K29.80 Duodenitis without bleeding (principal); K29.70 Gastritis, unspecified, without bleeding
CPT/HCPCS: 36415; 74018; 80053; 83690; 85025